=== PATIENT | female | born 1995 | race Caucasian/White ===

== ENCOUNTER → 2017-01-25 | Outpatient (CLI) | payer OTHER ==
--- NOTE | 2017-01-26 08:37 | US ---
EXAMINATION TYPE: US pelvic complete DATE OF EXAM: 01/25/2017 COMPARISON: NONE CLINICAL HISTORY: 21-year-old female N92.1 Breakthrough bleeding w/ IUD; Z97.5 IUD PLACEMENT. Pelvic pain, IUD placement 2014 TECHNIQUE: Transabdominal (TA) Date of LMP: 01/09/17 FINDINGS: Uterus: Anteverted measuring 8.9 x 4.5 x 6.1 cm. A small cervical nabothian cyst is noted. Endometrial Stripe: 0.7 cm. Trace fluid within the fundal uterine cavity. The IUD appears appropriate ly situated along the uterine cavity. Right Ovary: 2.6 x 1.6 x 1.7 cm with follicular change. Left Ovary: 3.1 x 2.7 x 1.9 cm with a 1.6 cm round heterogeneous lesion that could represent a hemor rhagic cyst or corpus luteum. Prominent vascularity and bilateral adnexa could be physiologic change. No pelvic free fluid. IMPRESSION: 1. The IUD appears appropriately positioned. There is a small amount of fluid along the fundal uterin e cavity. 2. A 1.6 cm hemorrhagic follicle/corpus luteum within the left ovary. 3. Prominent bilateral adnexal vascularity could be physiologic change.
== END | disposition home or self-care (01) ==
LOC: RADUSWWP 16:19
PROVIDERS: ATTEND Obstetrics & Gynecology
DX: N83.8 Other noninflammatory disorders of ovary, fallopian tube and broad ligament (principal); N92.1 Excessive and frequent menstruation with irregular cycle; Z97.5 Presence of (intrauterine) contraceptive device
CPT/HCPCS: 76856

== ENCOUNTER 2017-03-02 17:24 | Emergency (ER) | payer OTHER ==
[2017-03-02 17:33] VITALS: BP 109/64; PULSE 88; RESP 18; TEMP 98.1
[2017-03-02] MEDS ORDERED: ACETAMINOPHEN TAB 500 MG TAB PO STA (18:12)
--- NOTE | 2017-03-02 18:15 | ED ---
General Adult HPI - General Chief complaint: Upper Respiratory Infection Stated complaint: FLU LIKE SYMPTOMS Time Seen by Provider: 03/02/17 18:09 Source: patient, RN notes reviewed Mode of arrival: ambulatory Limitations: no limitations - History of Present Illness Initial comments: 21-year-old female presents emergency Department chief complaint cough cold like symptoms. Patient states that she has had a fever since about Saturday this week she's had a cough and runny nose burning in the throat. Patient states also sick at home. Patient states she is tried Advil and Motrin with no improvement to her symptoms. Patient was concerned she just does not feel like she is getting better so she thought that she should be evaluated. Patient denies any recent shortness of breath, chest pain, back pain, abdominal pain, nausea vomiting, numbness or tingling, dysuria or hematuria, constipation or diarrhea, headaches or visual changes, or any other current symptoms. - Related Data Home Medications Medication Instructions Recorded Confirmed lamoTRIgine [LaMICtal] 200 mg PO DAILY 02/07/16 05/15/16 Escitalopram [Lexapro] 10 mg PO DAILY 05/15/16 05/15/16 Previous Rx's Medication Instructions Recorded Ibuprofen [Motrin] 600 mg PO Q6HR PRN #20 tab 05/15/16 Orphenadrine [Norflex] 100 mg PO Q12H PRN #12 tablet.er 05/15/16 predniSONE 50 mg PO DAILY #5 tab 03/02/17 Allergies Allergy/AdvReac Type Severity Reaction Status Date / Time nifedipine [From Procardia] Allergy Swelling Verified 03/02/17 17:32 Review of Systems ROS Statement: Those systems with pertinent positive or pertinent negative responses have been documented in the HPI. ROS Other: All systems not noted in ROS Statement are negative. Past Medical History Past Medical History: No Reported History Additional Past Medical History / Comment(s): IBS, crohns disease, migraines History of Any Multi-Drug Resistant Organisms: MRSA Date of last positivie culture/infection: 2007 knee and axilla MDRO Source:: knee and axilla Past Surgical History: Adenoidectomy, Tonsillectomy Past Anesthesia/Blood Transfusion Reactions: No Reported Reaction Past Psychological History: Anxiety Smoking Status: Current every day smoker Past Alcohol Use History: None Reported Past Drug Use History: None Reported - Past Family History Mother Family Medical History: No Reported History Additional Family Medical History / Comment(s): on mom's side, gradmother has heart disease General Exam - General Exam Comments Initial Comments: General exam: Alert, active, comfortable in no apparent distress Head: Normocephalic Eyes: Normal reaction of pupils, equal size, normal range of extraocular motion Ears: normal external ear canals, pink tympanic membranes with normal cone of light Nose: clear with pink turbinates Throat: no erythema or exudates with normal sized tonsils Neck: no masses, no nuchal rigidity Chest: no chest wall deformity Lungs: equal air entry with no crackles or wheeze CVS: S1 and S2 normal with no audible mumurs, regular rhythm Abdomen: no hepatosplenomegaly, normal bowel sounds, no guarding or rigidity Spine: no scoliosis or deformity Skin: no rashes Neurological: No focal deficits, tone is normal in all 4 extremities Limitations: no limitations Course Vital Signs 03/02/17 17:28 Temperature 98.1 F Pulse Rate 88 Respiratory 18 Rate Blood Pressure 109/64 O2 Sat by Pulse 100 Oximetry Medical Decision Making - Medical Decision Making 21-year-old female presents to the emergency department with a chief complaint of upper extremity like symptoms. At this time patient's testing is negative. Discussed mostly the viral syndrome. We discussed Motrin Tylenol for her on steroids help with the dry cough. Discussed return members in all patient's questions. She stated she understood and she is given plan. All questions have been answered. She will be discharged. - Lab Data Lab Results 03/02/17 Range/Units 18:24 Group A Strep Rapid Negative (Negative) - Radiology Data Radiology results: report reviewed, image reviewed Disposition Clinical Impression: Upper respiratory infection Disposition: HOME SELF-CARE Condition: Stable Instructions: Upper Respiratory Infection (ED) Additional Instructions: Please use medication as discussed. Please follow up with family doctor if symptoms have not improved over the next two days. Please return to the emergency room if your symptoms increase or worsen or for any other concerns. Prescriptions: predniSONE 50 mg PO DAILY #5 tab Referrals: Reilly Joshi DO [Primary Care Provider] - 1-2 days Time of Disposition: 18:46
--- NOTE | 2017-03-02 18:40 | XR ---
EXAMINATION TYPE: XR chest 2V DATE OF EXAM: 03/02/2017 COMPARISON: 08/29/2015 HISTORY: Fever chills and cough TECHNIQUE: Frontal and lateral views of the chest are obtained. FINDINGS: There is no focal air space opacity, pleural effusion, or pneumothorax seen. The cardiac silhouette size is within normal limits. The osseous structures are intact. Scoliotic curvature of the thoracolumbar spine, S-shaped is again noted similar to the prior. IMPRESSION: No acute cardiopulmonary process.
== END 2017-03-02 19:00 | disposition home or self-care (01) ==
LOC: EC 17:24
DX: J06.9 Acute upper respiratory infection, unspecified (principal); F41.9 Anxiety disorder, unspecified; F17.200 Nicotine dependence, unspecified, uncomplicated; Z86.14 Personal history of Methicillin resistant Staphylococcus aureus infection; Z79.899 Other long term (current) drug therapy; Z88.8 Allergy status to other drugs, medicaments and biological substances
CPT/HCPCS: 71020; 87081; 87430; 99283

== ENCOUNTER → 2017-05-06 | Outpatient (CLI) | payer OTHER ==
--- NOTE | 2017-05-06 12:34 | MR ---
EXAMINATION TYPE: MR angio head wo con DATE OF EXAM: 05/06/2017 COMPARISON: MR brain same date HISTORY: Headache syndrome TECHNIQUE: Time of flight images focusing on the [place] were performed without contrast. FINDINGS: There is no evident aneurysm. Internal carotid arteries, vertebrobasilar system are patent. A1 segment of the internal carotid artery on the right is atrophic. Left vertebral artery is domina nt. No vascular malformation. No filling defect to suggest embolus. Suspect streaming artifact within the internal carotid arteries. IMPRESSION: No significant abnormality evident to account for patient's symptoms.
--- NOTE | 2017-05-06 12:43 | MR ---
EXAMINATION TYPE: MR brain wo/w con DATE OF EXAM: 05/06/2017 COMPARISON: MR angiogram same date, CT brain 06/03/2016 HISTORY: Headache syndrome TECHNIQUE: Multiplanar, multisequence images of the brain and brainstem is performed without and with IV contras t, utilizing 4.5 mL intravenous Gadavist . FINDINGS: Diffusion weighted images demonstrate no evidence of a recent infarct or other diffusion ab normality. Artifact present due to patient's dental hardware. There is no extra-axial fluid collecti on or significant white matter signal abnormality, punctate focus of hyperintensity in the left front al white matter on inversion recovery and T2-weighted sequences is noted. The ventricular system and cisternal spaces are normal in size and appearance. The brain volume is age appropriate. Midline structures demonstrate normal morphology, incidental pineal gland cyst noted. The craniocerv ical junction appears within normal limits. Post contrast images demonstrate no abnormal enhancement . The dural venous sinuses appear patent. The visualized sinuses are clear and the globes are intact. IMPRESSION: Exam somewhat limited. No abnormality evident to account for patient's symptoms. Nonspeci fic white matter demyelination as described.
== END | disposition home or self-care (01) ==
LOC: RADMRIMAIN 09:34
PROVIDERS: ATTEND Family Medicine
DX: R90.82 White matter disease, unspecified (principal); G44.89 Other headache syndrome
CPT/HCPCS: 70553; 70544; A9581

== ENCOUNTER 2017-09-18 17:20 | Emergency (ER) | payer OTHER ==
[2017-09-18 17:38] VITALS: RESP 18
[2017-09-18] MEDS ORDERED: KETOROLAC 30 MG/ML 1 ML VIAL IVP STA (17:49)
[2017-09-18] MEDS ORDERED: SODIUM CHLORIDE 0.9% 1,000 ML IV ONE (17:49)
--- NOTE | 2017-09-18 17:53 | ED ---
General Adult HPI - General Chief complaint: Abdominal Pain Stated complaint: Gallbladder issues Time Seen by Provider: 09/18/17 17:39 Source: patient Mode of arrival: ambulatory Limitations: no limitations - History of Present Illness Initial comments: This is a 22-year-old female with a history of IBS who presents emergency department for right upper quadrant abdominal soreness, generalized fatigue, chills, and mucousy stools. She states that the symptoms started approximately one week ago and have gradually worsened. She states that she called her primary doctor who was concerned for possible gallbladder pathology so they sent her to the emergency department. Patient states that the pain is not worse with eating. She states that she does not really have a pain and just it just feels sore. She denies any nausea or vomiting. She states that she does have chronic diarrhea because of her IBS. She had a bowel movement earlier today and had a little bit of blood and mucus in it. It was more formed than normal. Also admits to a mild right-sided headache. She states that she did hit her head a few days ago and feels that the headache is likely from this. She denies any focal neurologic symptoms. No double vision. No difficult speech or swallowing. No other acute complaints. - Related Data Home Medications Medication Instructions Recorded Confirmed Etonogestrel/Ethinyl Estradiol 1 ring VG Q21D 09/18/17 09/18/17 [Nuvaring Vaginal Ring] Vitamin C/Biotin [Hair, Skin and 1 tab PO DAILY 09/18/17 09/18/17 Nails] Previous Rx's Medication Instructions Recorded Ciprofloxacin HCl [Cipro] 500 mg PO BID 3 Days #14 tab 09/18/17 Dicyclomine [Bentyl] 10 mg PO QID PRN #20 capsule 09/18/17 Allergies Allergy/AdvReac Type Severity Reaction Status Date / Time nifedipine [From Procardia] Allergy Swelling Verified 09/18/17 18:00 Review of Systems ROS Statement: Those systems with pertinent positive or pertinent negative responses have been documented in the HPI. ROS Other: All systems not noted in ROS Statement are negative. Past Medical History Past Medical History: No Reported History Additional Past Medical History / Comment(s): IBS, crohns disease, migraines History of Any Multi-Drug Resistant Organisms: MRSA Date of last positivie culture/infection: 2007 knee and axilla MDRO Source:: knee and axilla Past Surgical History: Adenoidectomy, Tonsillectomy Past Anesthesia/Blood Transfusion Reactions: No Reported Reaction Past Psychological History: Anxiety Smoking Status: Current every day smoker Past Alcohol Use History: None Reported Past Drug Use History: None Reported - Past Family History Mother Family Medical History: No Reported History Additional Family Medical History / Comment(s): on mom's side, gradmother has heart disease General Exam - General Exam Comments Initial Comments: Constitutional: Awake alert Appears comfortable Head: Normocephalic atraumatic Eyes: no conjunctival injection No scleral icterus EOMI Neck: No JVD Supple Heart: Regular rate rhythm normal S1-S2 no murmurs Lungs: Clear to auscultation bilaterally No wheezing No rales Abdomen: Soft nondistended no tenderness palpation in the right upper quadrant or the rest of the abdomen Extremities: Non edematous DP pulses intact Radial pulses intact Neuro: A&Ox3 No focal neurologic deficits Psych: Appropriate mood and affect Limitations: no limitations Course Vital Signs 09/18/17 17:35 Temperature 97.9 F Pulse Rate 88 Respiratory 18 Rate Blood Pressure 135/70 O2 Sat by Pulse 98 Oximetry Medical Decision Making - Medical Decision Making Is a 22-year-old female who presents emergency department for generalized fatigue, chills, and abdominal discomfort with mucousy stools. The patient was evaluated blood work and was completely unremarkable. She had no tenderness to palpation the right upper quadrant. She did complain of some soreness there however. UA was evaluated and appears contaminated. The patient has no urinary complaints. She has been dealing with these symptoms for the last week and now she is having bloody and mucousy stools. I'm concerned for colitis. We 'll start her on ciprofloxacin twice a day. Also give her some Bentyl. She is close follow-up with her primary doctor. If she has worsening or changing symptoms she can return the emergency department. All questions were answered. - Lab Data Result diagrams: 09/18/17 18:04 09/18/17 18:04 Lab Results 09/18/17 09/18/17 09/18/17 Range/Units 18:04 18:04 18:04 WBC 4.0 (3.8-10.6) k/uL RBC 4.67 (3.80-5.40) m/uL Hgb 12.9 (11.4-16.0) gm/dL Hct 38.2 (34.0-46.0) % MCV 81.9 (80.0-100.0) fL MCH 27.7 (25.0-35.0) pg MCHC 33.8 (31.0-37.0) g/dL RDW 13.0 (11.5-15.5) % Plt Count 319 (150-450) k/uL Neutrophils % 44 % Lymphocytes % 42 % Monocytes % 9 % Eosinophils % 2 % Basophils % 0 % Neutrophils # 1.8 (1.3-7.7) k/uL Lymphocytes # 1.7 (1.0-4.8) k/uL Monocytes # 0.4 (0-1.0) k/uL Eosinophils # 0.1 (0-0.7) k/uL Basophils # 0.0 (0-0.2) k/uL Sodium 145 (137-145) mmol/L Potassium 3.7 (3.5-5.1) mmol/L Chloride 105 (98-107) mmol/L Carbon Dioxide 27 (22-30) mmol/L Anion Gap 13 mmol/L BUN 13 (7-17) mg/dL Creatinine 0.60 (0.52-1.04) mg/dL Est GFR (CKD-EPI)AfAm >90 (>60 ml/min/1.73 sqM) Est GFR (CKD-EPI)NonAf >90 (>60 ml/min/1.73 sqM) Glucose 81 (74-99) mg/dL Calcium 9.4 (8.4-10.2) mg/dL Total Bilirubin 0.3 (0.2-1.3) mg/dL AST 17 (14-36) U/L ALT 24 (9-52) U/L Alkaline Phosphatase 59 (38-126) U/L Total Protein 7.1 (6.3-8.2) g/dL Albumin 4.0 (3.5-5.0) g/dL Lipase 270 (23-300) U/L Urine Color Urine Appearance (Clear) Urine pH (5.0-8.0) Ur Specific [place] (1.001-1.035) Urine Protein (Negative) Urine Glucose (UA) (Negative) Urine Ketones (Negative) Urine Blood (Negative) Urine Nitrite (Negative) Urine Bilirubin (Negative) Urine Urobilinogen (<2.0) mg/dL Ur Leukocyte Esterase (Negative) Urine RBC (0-5) /hpf Urine WBC (0-5) /hpf Ur Squamous Epith Cells (0-4) /hpf Urine Mucus (None) /hpf Urine HCG, Qual Not Detected (Not Detectd) Influenza Type A RNA (Not Detectd) Influenza Type B (PCR) (Not Detectd) 09/18/17 09/18/17 Range/Units 18:04 18:04 WBC (3.8-10.6) k/uL RBC (3.80-5.40) m/uL Hgb (11.4-16.0) gm/dL Hct (34.0-46.0) % MCV (80.0-100.0) fL MCH (25.0-35.0) pg MCHC (31.0-37.0) g/dL RDW (11.5-15.5) % Plt Count (150-450) k/uL Neutrophils % % Lymphocytes % % Monocytes % % Eosinophils % % Basophils % % Neutrophils # (1.3-7.7) k/uL Lymphocytes # (1.0-4.8) k/uL Monocytes # (0-1.0) k/uL Eosinophils # (0-0.7) k/uL Basophils # (0-0.2) k/uL Sodium (137-145) mmol/L Potassium (3.5-5.1) mmol/L Chloride (98-107) mmol/L Carbon Dioxide (22-30) mmol/L Anion Gap mmol/L BUN (7-17) mg/dL Creatinine (0.52-1.04) mg/dL Est GFR (CKD-EPI)AfAm (>60 ml/min/1.73 sqM) Est GFR (CKD-EPI)NonAf (>60 ml/min/1.73 sqM) Glucose (74-99) mg/dL Calcium (8.4-10.2) mg/dL Total Bilirubin (0.2-1.3) mg/dL AST (14-36) U/L ALT (9-52) U/L Alkaline Phosphatase (38-126) U/L Total Protein (6.3-8.2) g/dL Albumin (3.5-5.0) g/dL Lipase (23-300) U/L Urine Color Yellow Urine Appearance Cloudy H (Clear) Urine pH 6.0 (5.0-8.0) Ur Specific [place] 1.025 (1.001-1.035) Urine Protein Trace H (Negative) Urine Glucose (UA) Negative (Negative) Urine Ketones Negative (Negative) Urine Blood Negative (Negative) Urine Nitrite Negative (Negative) Urine Bilirubin Negative (Negative) Urine Urobilinogen 2.0 (<2.0) mg/dL Ur Leukocyte Esterase Moderate H (Negative) Urine RBC 1 (0-5) /hpf Urine WBC 27 H (0-5) /hpf Ur Squamous Epith Cells 22 H (0-4) /hpf Urine Mucus Few H (None) /hpf Urine HCG, Qual (Not Detectd) Influenza Type A RNA Not Detected (Not Detectd) Influenza Type B (PCR) Not Detected (Not Detectd) Disposition Clinical Impression: Colitis Disposition: HOME SELF-CARE Condition: Stable Instructions: Colitis (ED) Prescriptions: Ciprofloxacin HCl [Cipro] 500 mg PO BID 3 Days #14 tab Dicyclomine [Bentyl] 10 mg PO QID PRN #20 capsule PRN Reason: Abdominal Cramping Referrals: None,Stated [Primary Care Provider] - 1-2 days
[2017-09-18 18:22] LABS: ALT 24 U/L (9-52); AST 17 U/L (14-36); Alkaline Phosphatase 59 U/L (38-126); Anion Gap 13 mmol/L; Basophils % (A) 0 %; Blood Urea Nitrogen 13 mg/dL (7-17); Calcium 9.4 mg/dL (8.4-10.2); Carbon Dioxide 27 mmol/L (22-30); Chloride 105 mmol/L (98-107); Eosinophils # (A) 0.1 k/uL (0-0.7); Eosinophils % (A) 2 %; Glucose 81 mg/dL (74-99); HCT 38.2 % (34.0-46.0); HGB 12.9 gm/dL (11.4-16.0); Lipase 270 U/L (23-300); Lymphocytes # (A) 1.7 k/uL (1.0-4.8); Lymphocytes % (A) 42 %; MCH 27.7 pg (25.0-35.0); MCHC 33.8 g/dL (31.0-37.0); MCV 81.9 fL (80.0-100.0); Mean Platelet Volume 7.6; Monocytes # (A) 0.4 k/uL (0-1.0); Monocytes % (A) 9 %; Neutrophils # (A) 1.8 k/uL (1.3-7.7); Neutrophils % (A) 44 %; Platelet Count 319 k/uL (150-450); Potassium 3.7 mmol/L (3.5-5.1); RBC 4.67 m/uL (3.80-5.40); Sodium 145 mmol/L (137-145); Total Bilirubin 0.3 mg/dL (0.2-1.3); Total Protein 7.1 g/dL (6.3-8.2)
[2017-09-18 18:35] LABS: Appearance,Urine Cloudy (Clear); Bilirubin,Urine Negative (Negative); Blood,Urine Negative (Negative); Color,Urine Yellow; Glucose,Urine (UA) Negative (Negative); Ketones,Urine Negative (Negative); Leukocyte Esterase,Urine Moderate (Negative); Mucus,Urine Few /hpf; Nitrite,Urine Negative (Negative); Protein,Urine Trace (Negative); RBC,Urine 1 /hpf (0-5); Specific Gravity,Urine 1.025 (1.001-1.035); Squamous Epithelial Cell,Urine 22 /hpf (0-4); WBC,Urine 27 /hpf (0-5)
[2017-09-18 19:19] VITALS: BP 108/56; PULSE 54; TEMP 99
== END 2017-09-18 19:19 | disposition home or self-care (01) ==
LOC: EC 17:20
DX: K52.9 Noninfective gastroenteritis and colitis, unspecified (principal); F17.200 Nicotine dependence, unspecified, uncomplicated; Z86.14 Personal history of Methicillin resistant Staphylococcus aureus infection; Z79.3 Long term (current) use of hormonal contraceptives; Z88.8 Allergy status to other drugs, medicaments and biological substances
CPT/HCPCS: 36415; 80053; 83690; 85025; 81001; 81025; 87086; 87502; 99284; 96374; 96361; J1885

== ENCOUNTER 2018-10-25 17:48 | Emergency (ER) | payer OTHER ==
[2018-10-25 18:00] VITALS: BP 112/74; PULSE 79; RESP 18; TEMP 98.7
[2018-10-25] MEDS ORDERED: ACET/COD 300 MG/30 MG STARTER PACK 6 TAB BTL PO STA (18:09)
[2018-10-25] MEDS ORDERED: PENICILLIN VK 500MG STARTER 4 TAB BTL PO STA (18:09)
--- NOTE | 2018-10-25 18:12 | ED ---
ENT HPI - General Chief complaint: Dental/Oral Stated complaint: dental pain Time Seen by Provider: 10/25/18 17:50 Source: patient Mode of arrival: ambulatory Limitations: no limitations - History of Present Illness Initial comments: 23-year-old female presenting today for chief complaint of right lower dental pain. Patient states she has had a "bad tooth" and had a recent cleaning by her dentist. She states that yesterday she noticed pain in the right lower tooth. She states pain has been increasing today. Patient is concerned infection and presents emergency department for evaluation. Patient denies swelling below tongue or below the angle of the mandible she denies any difficulty breathing or swallowing she denies fever chills or night sweats. Remaining review of systems negative upon arrival patient appears well - Related Data Home Medications Medication Instructions Recorded Confirmed Etonogestrel/Ethinyl Estradiol 1 ring VG Q21D 09/18/17 10/25/18 [Nuvaring Vaginal Ring] Multivitamins, Thera [Multivitamin 1 tab PO DAILY 10/25/18 10/25/18 (formulary)] Previous Rx's Medication Instructions Recorded Acetaminophen with Codeine 1 tab PO Q6H PRN 3 Days #12 tab 10/25/18 [Tylenol w/codeine #3] Penicillin V Potassium [Pen Vee K] 500 mg PO QID 7 Days #28 tablet 10/25/18 Allergies Allergy/AdvReac Type Severity Reaction Status Date / Time nifedipine [From Procardia] Allergy Swelling Verified 10/25/18 18:20 Review of Systems ROS Statement: Those systems with pertinent positive or pertinent negative responses have been documented in the HPI. ROS Other: All systems not noted in ROS Statement are negative. Past Medical History Past Medical History: No Reported History Additional Past Medical History / Comment(s): IBS, crohns disease, migraines History of Any Multi-Drug Resistant Organisms: MRSA Date of last positivie culture/infection: 2007 knee and axilla MDRO Source:: knee and axilla Past Surgical History: Adenoidectomy, Tonsillectomy Past Anesthesia/Blood Transfusion Reactions: No Reported Reaction Past Psychological History: Anxiety Smoking Status: Former smoker Past Alcohol Use History: Occasional Past Drug Use History: None Reported - Past Family History Mother Family Medical History: No Reported History Additional Family Medical History / Comment(s): on mom's side, gradmother has heart disease General Exam - General Exam Comments Initial Comments: General: The patient is awake and alert, in no distress, and does not appear acutely ill. Eye: Pupils are equal, round and reactive to light, extra-ocular movements are intact. No nystagmus. There is normal conjunctiva bilaterally. No signs of icterus. Ears, nose, mouth and throat: There are moist mucous membranes and no oral lesions. Tooth #30 appears carious, there is pain to percussion no palpable abscess. No swelling below the tongue or below the angle of the mandible. No stridor try putting or drooling. Neck: The neck is supple, there is no tenderness or JVD. Cardiovascular: There is a regular rate and rhythm. No murmur, rub or gallop is appreciated. Respiratory: Lungs are clear to auscultation, respirations are non-labored, breath sounds are equal. No wheezes, stridor, rales, or rhonchi. Musculoskeletal: Normal ROM, no tenderness. Strength 5/5. Sensation intact. Radia pulses equal bilaterally 2+. Neurological: A&O x 3. CN II-XII intact, There are no obvious motor or sensory deficits. Coordination appears grossly intact. Speech is normal. Skin: Skin is warm and dry and no rashes or lesions are noted. Psychiatric: Cooperative, appropriate mood & affect, normal judgment. Limitations: no limitations Course Vital Signs 10/25/18 17:57 Temperature 98.7 F Pulse Rate 79 Respiratory 18 Rate Blood Pressure 112/74 O2 Sat by Pulse 100 Oximetry Medical Decision Making - Medical Decision Making 23-year-old female presented for right-sided dental pain. Patient has dental caries on examination. There is pain to percussion of tooth #30 concerning for possible developing periapical abscess. No sign of ludwigs angina. No palpable fluctuant abscess. Patient was started on penicillin VK and given Tylenol No. 3 for pain management I discussed the risks involved with use of Tylenol No. 3 advised patient not to work operate machinery or take medication for severe pain. Patient verbalized understanding of risks. Return parameters were discussed at length the patient who verbalized understanding. She was discharged appearing well Disposition Clinical Impression: Pain, dental Disposition: HOME SELF-CARE Condition: Good Instructions (If sedation given, give patient instructions): Dental Abscess (ED), Dental Caries (ED) Additional Instructions: Please use medication as discussed. Please follow-up with dentist on Saturday. Please return to emergency room if the symptoms increase or worsen or for any other concerns as discussed. Prescriptions: Penicillin V Potassium [Pen Vee K] 500 mg PO QID 7 Days #28 tablet Acetaminophen with Codeine [Tylenol w/codeine #3] 1 tab PO Q6H PRN 3 Days #12 tab PRN Reason: Severe Pain Is patient prescribed a controlled substance at d/c from ED?: Yes When asked, does pt state using other controlled substances?: No If prescribed controlled substance>3 days was MAPS reviewed?: Prescribed <3 Days If opioid is for acute pain is fill amount 7 days or less?: Yes If Rx opioid, was Start Talking consent form obtained?: Yes Referrals: None,Stated [Primary Care Provider] - 1-2 days Storm Manuel DDS [STAFF PHYSICIAN] - 1-2 days Time of Disposition: 18:11
== END 2018-10-25 18:25 | disposition home or self-care (01) ==
LOC: EC 17:48
DX: K08.89 Other specified disorders of teeth and supporting structures (principal); Z88.8 Allergy status to other drugs, medicaments and biological substances; Z87.891 Personal history of nicotine dependence
CPT/HCPCS: 99282

== ENCOUNTER 2018-11-03 12:03 | Emergency (ER) | payer OTHER ==
[2018-11-03] MEDS ORDERED: SODIUM CHLORIDE 0.9% 1,000 ML IV ONE (13:21)
[2018-11-03] MEDS ORDERED: KETOROLAC 30 MG/ML 1 ML VIAL IVP STA (13:21)
--- NOTE | 2018-11-03 13:24 | ED ---
General Adult HPI - General Chief complaint: Headache Stated complaint: headache, numb ears Time Seen by Provider: 11/03/18 12:56 Source: patient Mode of arrival: ambulatory Limitations: no limitations - History of Present Illness Initial comments: Patient is a 23-year-old female who presents with a chief complaint of a headache. This is been going on for about a month. Patient states it is waxing and waning in nature, she states it is in the base of her skull with some radiation down the neck and up towards the top of her head. She states that she also has a history of anxiety and panic attacks. She states her headache is worse when she is feeling anxious. She states a gradual onset, it is aching in nature, waxing and waning. She states that she has a family history of a brain aneurysm in her mother, though she followed up with her primary care doctor after this and says one had an MRI of the brain which was normal. - Related Data Home Medications Medication Instructions Recorded Confirmed Etonogestrel/Ethinyl Estradiol 1 ring VG Q21D 09/18/17 11/03/18 [Nuvaring Vaginal Ring] Multivitamins, Thera [Multivitamin 1 tab PO DAILY 10/25/18 11/03/18 (formulary)] Allergies Allergy/AdvReac Type Severity Reaction Status Date / Time nifedipine [From Procardia] Allergy Swelling Verified 11/03/18 12:33 Review of Systems ROS Statement: Those systems with pertinent positive or pertinent negative responses have been documented in the HPI. ROS Other: All systems not noted in ROS Statement are negative. Neurological: Reports: headache Past Medical History Past Medical History: No Reported History Additional Past Medical History / Comment(s): IBS, crohns disease, migraines, borderline personality disorder. History of Any Multi-Drug Resistant Organisms: MRSA Date of last positivie culture/infection: 2007 knee and axilla MDRO Source:: knee and axilla Past Surgical History: Adenoidectomy, Tonsillectomy Past Anesthesia/Blood Transfusion Reactions: No Reported Reaction Past Psychological History: Anxiety Smoking Status: Current some day smoker Past Alcohol Use History: Occasional Past Drug Use History: None Reported - Past Family History Mother Family Medical History: No Reported History Additional Family Medical History / Comment(s): on mom's side, gradmother has heart disease General Exam Limitations: no limitations General appearance: alert, in no apparent distress Head exam: Present: atraumatic, normocephalic Eye exam: Present: normal appearance, PERRL, EOMI Pupils: Present: normal accommodation. Absent: irregular, unequal ENT exam: Present: normal exam, normal oropharynx Neck exam: Present: normal inspection Respiratory exam: Present: normal lung sounds bilaterally. Absent: respiratory distress, wheezes Cardiovascular Exam: Present: regular rate, normal rhythm GI/Abdominal exam: Present: soft. Absent: distended, tenderness Rectal exam: Present: deferred Extremities exam: Present: normal inspection Back exam: Present: normal inspection Neurological exam: Present: alert, oriented X3 Psychiatric exam: Present: normal affect, normal mood Skin exam: Present: warm, dry, intact Course Vital Signs 11/03/18 11/03/18 12:19 14:00 Temperature 98.8 F Pulse Rate 64 62 Respiratory 18 16 Rate Blood Pressure 113/71 103/66 O2 Sat by Pulse 100 99 Oximetry Medical Decision Making - Medical Decision Making Patient presents with a chief complaint of a headache. On initial evaluation, vitals are stable, patient is in no acute distress. History of the headache is non-concerning for acute life-threatening causes of headache. Fluid retention headache at this time. Patient had an MRI of the brain recently which was normal did not show any aneurysm. She'll be evaluated with basic lead including urinalysis and test today. She was given a liter of IV fluid, and Toradol. Patient is neurologically intact, emulating well without assistance, negative Romberg, motor and sensation is intact. 3:52 PM Evaluation of this patient is unremarkable, hCG is negative, urinalysis shows no evidence of infection. Review of patient's records show that the MRI was in 2017, did not show any evidence of aneurysm at that time. Reexamination, patient states she is feeling better after the Toradol. She is stable for discharge. Patient struck and follow up with primary care in 1-2 days, return to the ED if symptoms worsen or change. - Lab Data Result diagrams: 11/03/18 14:00 11/03/18 14:00 Lab Results 11/03/18 11/03/18 11/03/18 Range/Units 13:45 14:00 14:00 WBC (3.8-10.6) k/uL RBC (3.80-5.40) m/uL Hgb (11.4-16.0) gm/dL Hct (34.0-46.0) % MCV (80.0-100.0) fL MCH (25.0-35.0) pg MCHC (31.0-37.0) g/dL RDW (11.5-15.5) % Plt Count (150-450) k/uL Neutrophils % % Lymphocytes % % Monocytes % % Eosinophils % % Basophils % % Neutrophils # (1.3-7.7) k/uL Lymphocytes # (1.0-4.8) k/uL Monocytes # (0-1.0) k/uL Eosinophils # (0-0.7) k/uL Basophils # (0-0.2) k/uL Potassium 4.0 (3.5-5.1) mmol/L Chloride 107 (98-107) mmol/L Carbon Dioxide 26 (22-30) mmol/L Anion Gap 7 mmol/L BUN 17 (7-17) mg/dL Creatinine 0.53 (0.52-1.04) mg/dL Est GFR (CKD-EPI)AfAm >90 (>60 ml/min/1.73 sqM) Est GFR (CKD-EPI)NonAf >90 (>60 ml/min/1.73 sqM) Glucose 76 (74-99) mg/dL Calcium 9.2 (8.4-10.2) mg/dL HCG, Qual Not Detected Urine Color Yellow Urine Appearance Clear (Clear) Urine pH 7.0 (5.0-8.0) Ur Specific [place] 1.020 (1.001-1.035) Urine Protein Negative (Negative) Urine Glucose (UA) Negative (Negative) Urine Ketones Negative (Negative) Urine Blood Negative (Negative) Urine Nitrite Negative (Negative) Urine Bilirubin Negative (Negative) Urine Urobilinogen <2.0 (<2.0) mg/dL Ur Leukocyte Esterase Small H (Negative) Urine RBC 1 (0-5) /hpf Urine WBC 3 (0-5) /hpf Ur Squamous Epith Cells <1 (0-4) /hpf Urine Mucus Rare H (None) /hpf 11/03/18 Range/Units 14:00 WBC 3.5 L (3.8-10.6) k/uL RBC 4.59 (3.80-5.40) m/uL Hgb 12.0 (11.4-16.0) gm/dL Hct 36.3 (34.0-46.0) % MCV 79.2 L (80.0-100.0) fL MCH 26.1 (25.0-35.0) pg MCHC 32.9 (31.0-37.0) g/dL RDW 13.8 (11.5-15.5) % Plt Count 256 (150-450) k/uL Neutrophils % 50 % Lymphocytes % 38 % Monocytes % 8 % Eosinophils % 2 % Basophils % 0 % Neutrophils # 1.7 (1.3-7.7) k/uL Lymphocytes # 1.3 (1.0-4.8) k/uL Monocytes # 0.3 (0-1.0) k/uL Eosinophils # 0.1 (0-0.7) k/uL Basophils # 0.0 (0-0.2) k/uL Potassium (3.5-5.1) mmol/L Chloride (98-107) mmol/L Carbon Dioxide (22-30) mmol/L Anion Gap mmol/L BUN (7-17) mg/dL Creatinine (0.52-1.04) mg/dL Est GFR (CKD-EPI)AfAm (>60 ml/min/1.73 sqM) Est GFR (CKD-EPI)NonAf (>60 ml/min/1.73 sqM) Glucose (74-99) mg/dL Calcium (8.4-10.2) mg/dL HCG, Qual Urine Color Urine Appearance (Clear) Urine pH (5.0-8.0) Ur Specific [place] (1.001-1.035) Urine Protein (Negative) Urine Glucose (UA) (Negative) Urine Ketones (Negative) Urine Blood (Negative) Urine Nitrite (Negative) Urine Bilirubin (Negative) Urine Urobilinogen (<2.0) mg/dL Ur Leukocyte Esterase (Negative) Urine RBC (0-5) /hpf Urine WBC (0-5) /hpf Ur Squamous Epith Cells (0-4) /hpf Urine Mucus (None) /hpf Disposition Clinical Impression: Tension headache Disposition: HOME SELF-CARE Condition: Good Instructions (If sedation given, give patient instructions): Acute Headache (ED) Is patient prescribed a controlled substance at d/c from ED?: No Referrals: None,Stated [Primary Care Provider] - 1-2 days Herminia Johnson MD [STAFF PHYSICIAN] - 1-2 days
[2018-11-03 14:21] LABS: Appearance,Urine Clear (Clear); Bilirubin,Urine Negative (Negative); Blood,Urine Negative (Negative); Color,Urine Yellow; Glucose,Urine (UA) Negative (Negative); Ketones,Urine Negative (Negative); Leukocyte Esterase,Urine Small (Negative); Mucus,Urine Rare /hpf; Nitrite,Urine Negative (Negative); Protein,Urine Negative (Negative); RBC,Urine 1 /hpf (0-5); Squamous Epithelial Cell,Urine <1 /hpf (0-4); Urobilinogen,Urine <2.0 mg/dL (<2.0); WBC,Urine 3 /hpf (0-5)
[2018-11-03 14:33] LABS: Basophils % (A) 0 %; Eosinophils # (A) 0.1 k/uL (0-0.7); Eosinophils % (A) 2 %; HCT 36.3 % (34.0-46.0); Lymphocytes # (A) 1.3 k/uL (1.0-4.8); Lymphocytes % (A) 38 %; MCH 26.1 pg (25.0-35.0); MCHC 32.9 g/dL (31.0-37.0); MCV 79.2 fL (80.0-100.0); Mean Platelet Volume 7.5; Monocytes # (A) 0.3 k/uL (0-1.0); Monocytes % (A) 8 %; Neutrophils # (A) 1.7 k/uL (1.3-7.7); Neutrophils % (A) 50 %; Platelet Count 256 k/uL (150-450); RBC 4.59 m/uL (3.80-5.40); RDW 13.8 % (11.5-15.5); WBC 3.5 k/uL (3.8-10.6)
[2018-11-03 14:43] LABS: Chloride 107 mmol/L (98-107)
[2018-11-03 14:44] LABS: Anion Gap 7 mmol/L; Blood Urea Nitrogen 17 mg/dL (7-17); Calcium 9.2 mg/dL (8.4-10.2); Carbon Dioxide 26 mmol/L (22-30); Glucose 76 mg/dL (74-99)
[2018-11-03 14:48] VITALS: RESP 16
[2018-11-03 15:49] LABS: Sodium 139 mmol/L (137-145)
[2018-11-03 16:06] VITALS: BP 116/67; PULSE 66; TEMP 98
== END 2018-11-03 16:07 | disposition home or self-care (01) ==
LOC: EC 12:03
DX: G44.209 Tension-type headache, unspecified, not intractable (principal); F17.200 Nicotine dependence, unspecified, uncomplicated; Z88.8 Allergy status to other drugs, medicaments and biological substances; Z97.5 Presence of (intrauterine) contraceptive device; Z86.14 Personal history of Methicillin resistant Staphylococcus aureus infection; Z86.69 Personal history of other diseases of the nervous system and sense organs; Z82.0 Family history of epilepsy and other diseases of the nervous system
CPT/HCPCS: 36415; 80048; 85025; 81001; 84703; 99283; 96374; 96361 ×2; J1885

== ENCOUNTER 2020-04-13 14:48 | Emergency (ER) | payer OTHER ==
[2020-04-13 14:54] VITALS: RESP 18; TEMP 98.4
[2020-04-13] MEDS ORDERED: SODIUM CHLORIDE 0.9% 1,000 ML IV STA ×2 (15:45)
[2020-04-13 16:04] LABS: Basophils % (A) 1 %; Eosinophils # (A) 0.1 k/uL (0-0.7); Eosinophils % (A) 2 %; HCT 39.5 % (34.0-46.0); HGB 12.6 gm/dL (11.4-16.0); Lymphocytes # (A) 1.1 k/uL (1.0-4.8); Lymphocytes % (A) 38 %; MCH 25.2 pg (25.0-35.0); MCV 78.6 fL (80.0-100.0); Mean Platelet Volume 7.5; Monocytes # (A) 0.2 k/uL (0-1.0); Monocytes % (A) 7 %; Neutrophils # (A) 1.5 k/uL (1.3-7.7); Neutrophils % (A) 50 %; Platelet Count 268 k/uL (150-450); RBC 5.02 m/uL (3.80-5.40); RDW 14.2 % (11.5-15.5)
[2020-04-13 16:05] LABS: Appearance,Urine Cloudy (Clear); Bilirubin,Urine Negative (Negative); Blood,Urine Negative (Negative); Color,Urine Yellow; Glucose,Urine (UA) Negative (Negative); Ketones,Urine Negative (Negative); Leukocyte Esterase,Urine Moderate (Negative); Mucus,Urine Occasional /hpf; Nitrite,Urine Negative (Negative); PH, Urine 7.5 (5.0-8.0); Protein,Urine Negative (Negative); RBC,Urine 1 /hpf (0-5); Specific Gravity,Urine 1.018 (1.001-1.035); Squamous Epithelial Cell,Urine 10 /hpf (0-4); Urobilinogen,Urine <2.0 mg/dL (<2.0); WBC,Urine 4 /hpf (0-5)
[2020-04-13 16:13] LABS: ALT 12 U/L (4-34); AST 20 U/L (14-36); African American GFR (CKD) >90 (>60 ml/min/1.73 sqM); Albumin 4.4 g/dL (3.5-5.0); Alkaline Phosphatase 73 U/L (38-126); Amylase 64 U/L (30-110); Anion Gap 7 mmol/L; Blood Urea Nitrogen 14 mg/dL (7-17); Calcium 9.5 mg/dL (8.4-10.2); Carbon Dioxide 28 mmol/L (22-30); Chloride 102 mmol/L (98-107); Glucose 115 mg/dL (74-99); Lipase 111 U/L (23-300); Non-African American GFR(CKD) >90 (>60 ml/min/1.73 sqM); Potassium 4.1 mmol/L (3.5-5.1); Sodium 137 mmol/L (137-145); Total Bilirubin 0.5 mg/dL (0.2-1.3); Total Protein 7.5 g/dL (6.3-8.2)
[2020-04-13] MEDS ORDERED: KETOROLAC 15 MG/ML 1 ML VIAL IVP STA (16:19)
[2020-04-13] MEDS ORDERED: ONDANSETRON 4 MG/2 ML VIAL IVP STA (16:19)
[2020-04-13] MEDS ORDERED: PANTOPRAZOLE 40 MG/10 ML VIAL IVP STA (16:19)
--- NOTE | 2020-04-13 17:22 | ED ---
Abdominal Pain HPI - General Chief Complaint: Abdominal Pain Stated Complaint: ABD pain Time Seen by Provider: 04/13/20 15:32 Source: patient, RN notes reviewed, old records reviewed Mode of arrival: ambulatory Limitations: no limitations - History of Present Illness Initial Comments: Patient is a 24-year-old female presents to the ER today for evaluation for 3 days of nausea and complains of episodes of mid epigastric abdominal pain leading towards her back today. She reports that she laid down in her pain seems somewhat subsided. - Related Data Home Medications Medication Instructions Recorded Confirmed Etonogestrel/Ethinyl Estradiol 1 ring VG Q21D 09/18/17 11/03/18 [Nuvaring Vaginal Ring] Multivitamins, Thera [Multivitamin 1 tab PO DAILY 10/25/18 11/03/18 (formulary)] Previous Rx's Medication Instructions Recorded Ondansetron Odt [Zofran Odt] 4 mg PO Q8HR PRN #12 tab 04/13/20 Pantoprazole [Protonix] 40 mg PO DAILY #30 tablet. 04/13/20 Allergies Allergy/AdvReac Type Severity Reaction Status Date / Time nifedipine [From Procardia] Allergy Swelling Verified 04/13/20 14:54 Review of Systems ROS Statement: Those systems with pertinent positive or pertinent negative responses have been documented in the HPI. ROS Other: All systems not noted in ROS Statement are negative. Past Medical History Past Medical History: No Reported History Additional Past Medical History / Comment(s): IBS, crohns disease, migraines, borderline personality disorder. History of Any Multi-Drug Resistant Organisms: MRSA Date of last positivie culture/infection: 2007 knee and axilla MDRO Source:: knee and axilla Past Surgical History: Adenoidectomy, Tonsillectomy Past Anesthesia/Blood Transfusion Reactions: No Reported Reaction Past Psychological History: Anxiety Smoking Status: Never smoker Past Alcohol Use History: Occasional Past Drug Use History: None Reported - Past Family History Mother Family Medical History: No Reported History Additional Family Medical History / Comment(s): on mom's side, gradmother has heart disease General Exam - General Exam Comments Initial Comments: 24 year old female, no distress. Limitations: no limitations General appearance: alert, in no apparent distress Head exam: Present: atraumatic, normocephalic, normal inspection Eye exam: Present: normal appearance, PERRL, EOMI. Absent: scleral icterus, conjunctival injection, periorbital swelling ENT exam: Present: normal exam, mucous membranes moist Neck exam: Present: normal inspection. Absent: tenderness, meningismus, lymphadenopathy Respiratory exam: Present: normal lung sounds bilaterally. Absent: respiratory distress, wheezes, rales, rhonchi, stridor Cardiovascular Exam: Present: regular rate, normal rhythm, normal heart sounds. Absent: systolic murmur, diastolic murmur, rubs, gallop, clicks GI/Abdominal exam: Present: soft, normal bowel sounds. Absent: distended, tenderness, guarding, rebound, rigid Extremities exam: Present: normal inspection, full ROM, normal capillary refill. Absent: tenderness, pedal edema, joint swelling, calf tenderness Back exam: Present: normal inspection Neurological exam: Present: alert, oriented X3, CN II-XII intact Psychiatric exam: Present: normal affect, normal mood Skin exam: Present: warm, dry, intact, normal color. Absent: rash Course Vital Signs 04/13/20 04/13/20 04/13/20 14:50 15:54 16:00 Temperature 98.4 F Pulse Rate 85 79 75 Respiratory 18 18 18 Rate Blood Pressure 106/72 110/65 101/72 O2 Sat by Pulse 98 99 99 Oximetry 04/13/20 04/13/20 17:00 18:00 Temperature 98.4 F Pulse Rate 78 75 Respiratory 18 18 Rate Blood Pressure 110/63 O2 Sat by Pulse 99 99 Oximetry Medical Decision Making - Medical Decision Making Patient's 44-year-old female presents emergency room today for nausea and vomiting, in epigastric area. Patient was given IV fluids and nausea medicine labwork obtained. Labs were reviewed and unremarkable. Patient is reevaluated and her pain is improved. Patient was advised patient's symptoms likely be gastritis or GERD. Discussed the Patient on antacid medication. Discussed that she can follow-up with her primary Drs. Hare GI doctor. Patient is agreeable to plan will comply. - Lab Data Result diagrams: 04/13/20 15:56 04/13/20 15:56 Lab Results 04/13/20 04/13/20 04/13/20 Range/Units 15:56 15:56 15:56 WBC 3.0 L (3.8-10.6) k/uL RBC 5.02 (3.80-5.40) m/uL Hgb 12.6 (11.4-16.0) gm/dL Hct 39.5 (34.0-46.0) % MCV 78.6 L (80.0-100.0) fL MCH 25.2 (25.0-35.0) pg MCHC 32.0 (31.0-37.0) g/dL RDW 14.2 (11.5-15.5) % Plt Count 268 (150-450) k/uL Neutrophils % 50 % Lymphocytes % 38 % Monocytes % 7 % Eosinophils % 2 % Basophils % 1 % Neutrophils # 1.5 (1.3-7.7) k/uL Lymphocytes # 1.1 (1.0-4.8) k/uL Monocytes # 0.2 (0-1.0) k/uL Eosinophils # 0.1 (0-0.7) k/uL Basophils # 0.0 (0-0.2) k/uL Sodium (137-145) mmol/L Potassium (3.5-5.1) mmol/L Chloride (98-107) mmol/L Carbon Dioxide (22-30) mmol/L Anion Gap mmol/L BUN (7-17) mg/dL Creatinine (0.52-1.04) mg/dL Est GFR (CKD-EPI)AfAm (>60 ml/min/1.73 sqM) Est GFR (CKD-EPI)NonAf (>60 ml/min/1.73 sqM) Glucose (74-99) mg/dL Calcium (8.4-10.2) mg/dL Total Bilirubin (0.2-1.3) mg/dL AST (14-36) U/L ALT (4-34) U/L Alkaline Phosphatase (38-126) U/L Total Protein (6.3-8.2) g/dL Albumin (3.5-5.0) g/dL Amylase (30-110) U/L Lipase (23-300) U/L Urine Color Yellow Urine Appearance Cloudy H (Clear) Urine pH 7.5 (5.0-8.0) Ur Specific [place] 1.018 (1.001-1.035) Urine Protein Negative (Negative) Urine Glucose (UA) Negative (Negative) Urine Ketones Negative (Negative) Urine Blood Negative (Negative) Urine Nitrite Negative (Negative) Urine Bilirubin Negative (Negative) Urine Urobilinogen <2.0 (<2.0) mg/dL Ur Leukocyte Esterase Moderate H (Negative) Urine RBC 1 (0-5) /hpf Urine WBC 4 (0-5) /hpf Ur Squamous Epith Cells 10 H (0-4) /hpf Urine Mucus Occasional H (None) /hpf Urine HCG, Qual Not Detected (Not Detectd) 04/13/20 Range/Units 15:56 WBC (3.8-10.6) k/uL RBC (3.80-5.40) m/uL Hgb (11.4-16.0) gm/dL Hct (34.0-46.0) % MCV (80.0-100.0) fL MCH (25.0-35.0) pg MCHC (31.0-37.0) g/dL RDW (11.5-15.5) % Plt Count (150-450) k/uL Neutrophils % % Lymphocytes % % Monocytes % % Eosinophils % % Basophils % % Neutrophils # (1.3-7.7) k/uL Lymphocytes # (1.0-4.8) k/uL Monocytes # (0-1.0) k/uL Eosinophils # (0-0.7) k/uL Basophils # (0-0.2) k/uL Sodium 137 (137-145) mmol/L Potassium 4.1 (3.5-5.1) mmol/L Chloride 102 (98-107) mmol/L Carbon Dioxide 28 (22-30) mmol/L Anion Gap 7 mmol/L BUN 14 (7-17) mg/dL Creatinine 0.58 (0.52-1.04) mg/dL Est GFR (CKD-EPI)AfAm >90 (>60 ml/min/1.73 sqM) Est GFR (CKD-EPI)NonAf >90 (>60 ml/min/1.73 sqM) Glucose 115 H (74-99) mg/dL Calcium 9.5 (8.4-10.2) mg/dL Total Bilirubin 0.5 (0.2-1.3) mg/dL AST 20 (14-36) U/L ALT 12 (4-34) U/L Alkaline Phosphatase 73 (38-126) U/L Total Protein 7.5 (6.3-8.2) g/dL Albumin 4.4 (3.5-5.0) g/dL Amylase 64 (30-110) U/L Lipase 111 (23-300) U/L Urine Color Urine Appearance (Clear) Urine pH (5.0-8.0) Ur Specific [place] (1.001-1.035) Urine Protein (Negative) Urine Glucose (UA) (Negative) Urine Ketones (Negative) Urine Blood (Negative) Urine Nitrite (Negative) Urine Bilirubin (Negative) Urine Urobilinogen (<2.0) mg/dL Ur Leukocyte Esterase (Negative) Urine RBC (0-5) /hpf Urine WBC (0-5) /hpf Ur Squamous Epith Cells (0-4) /hpf Urine Mucus (None) /hpf Urine HCG, Qual (Not Detectd) Disposition Clinical Impression: Abdominal pain, Gastritis Disposition: HOME SELF-CARE Condition: Good Instructions (If sedation given, give patient instructions): Abdominal Pain (ED) Additional Instructions: Patient has a take the medications as prescribed. Following up with primary care physician. Return to emergency department if any alarming signs or symptoms occur. Prescriptions: Pantoprazole [Protonix] 40 mg PO DAILY #30 tablet. Ondansetron Odt [Zofran Odt] 4 mg PO Q8HR PRN #12 tab PRN Reason: Nausea Is patient prescribed a controlled substance at d/c from ED?: No Referrals: Shadi Fierro DO [Primary Care Provider] - 1-2 days Time of Disposition: 17:20
[2020-04-13 18:07] VITALS: BP 110/63; PULSE 75
== END 2020-04-13 18:00 | disposition home or self-care (01) ==
LOC: EC 14:48
DX: K29.70 Gastritis, unspecified, without bleeding (principal); Z79.3 Long term (current) use of hormonal contraceptives; Z88.8 Allergy status to other drugs, medicaments and biological substances; Z87.19 Personal history of other diseases of the digestive system; Z86.14 Personal history of Methicillin resistant Staphylococcus aureus infection
CPT/HCPCS: 36415; 80053; 82150; 83690; 85025; 81001; 81025; 99284; 96374; 96375 ×2; 96361 ×2; J2405; J1885; C9113

== ENCOUNTER → 2020-08-18 | Outpatient (CLI) | payer OTHER ==
[2020-08-19 10:01] LABS: T4, Free (Free Thyroxine) 1.1 ng/dL (0.80-1.80)
[2020-08-19 14:45] LABS: Estradiol 40.9 pg/mL; Follicle Stimulating Hormone 7.4 mIU/mL; Luteinizing Hormone 5.7 mIU/mL; Progesterone 0.5 ng/mL; Prolactin 7.1 ng/mL (2.8-29.2)
== END | disposition home or self-care (01) ==
LOC: LABWHC1 13:57
PROVIDERS: ATTEND Obstetrics & Gynecology
DX: N93.8 Other specified abnormal uterine and vaginal bleeding (principal)
CPT/HCPCS: 36415; 82670; 83001; 83002; 84144; 84146; 84439; 84443; 84479

== ENCOUNTER 2020-09-05 08:39 | Day surgery (SDC) | payer OTHER ==
[2020-08-31 14:07] VITALS: BMI 21.5
[~2020-09-05 08:39] MED LIST: LACTATED RINGERS 1,000 ML IV SCH
[2020-09-05 09:10] VITALS: TEMP 98.3
[2020-09-05] MEDS ORDERED: LACTATED RINGERS 1,000 ML IV ONE (09:40)
[2020-09-05] MEDS ORDERED: PROPOFOL 10 MG/ML 20 ML VIAL IV ONE (09:41)
[2020-09-05] MEDS ORDERED: LIDOCAINE 1% INJ 10MG/ML (20 ML MDV) ONE (09:41)
--- NOTE | 2020-09-05 10:18 | P.PCN ---
Date of Procedure: 09/05/20 Description of Procedure: BRIEF HISTORY: Patient is a 25-year-old female presenting for outpatient esophagogastroduodenoscopy for evaluation of epigastric pain. She reports pain radiating to her back described as severe occurring in waves. She is known history of GERD and is currently on Protonix. PROCEDURE PERFORMED: Esophagogastroduodenoscopy with biopsy . PREOPERATIVE DIAGNOSIS: Epigastric abdominal pain, GERD. ESTIMATED BLOOD LOSS: Minimal. IV sedation per anesthesia. PROCEDURE: After informed consent was obtained, the patient was brought into the endoscopy unit. IV sedation was administered by Anesthesia under continuous monitoring. Initially the Olympus GIF-190 video endoscope was inserted into the mouth. Esophagus intubated without any difficulty. It was gradually advanced into the stomach and duodenum and carefully examined. The bulb and the second part of the duodenum appeared normal, With biopsies taken to rule out celiac sprue. The scope at this time was withdrawn to the stomach, adequately insufflated with air, and upon careful examination, mucosa of the antrum, body, cardia and the fundus appeared normal Except for some mild patchy erythema in the antrum and body suggestive of mild gastritis. Biopsies taken . The scope was then withdrawn into the esophagus. The GE junction was located at 36 cm from the incisors and biopsied. The esophagus appeared normal. There were no erosions or ulcerations seen and the patient tolerated the procedure well. IMPRESSION: 1. Mild gastritis. 2. Biopsies of the duodenum, antrum body and GE junction. RECOMMENDATIONS: The findings of this examination were discussed with the patient and her family. Okay to resume diet. Okay to resume medications. Await pathology from biopsies. Follow up in the GI clinic as scheduled. Continue current medical management.
[2020-09-05 10:23] VITALS: PULSE 77; RESP 17
[2020-09-05 10:24] VITALS: BP 102/73
== END 2020-09-05 10:55 | disposition home or self-care (01) ==
LOC: ORWHC2ENDO 08:39
PROVIDERS: ATTEND Internal Medicine
DX: K21.00 Gastro-esophageal reflux disease with esophagitis, without bleeding (principal); K29.70 Gastritis, unspecified, without bleeding; K58.9 Irritable bowel syndrome, unspecified; Z72.0 Tobacco use; Z88.8 Allergy status to other drugs, medicaments and biological substances; Z79.899 Other long term (current) drug therapy; Z90.89 Acquired absence of other organs; Z98.890 Other specified postprocedural states
CPT/HCPCS: 81025; 88305; 43239; J2001; J2704

== ENCOUNTER 2021-08-29 01:27 | Emergency (ER) | payer OTHER ==
[2021-08-29 01:38] VITALS: TEMP 97.8
--- NOTE | 2021-08-29 02:17 | XR ---
EXAMINATION TYPE: XR chest 2V DATE OF EXAM: 08/29/2021 COMPARISON: 03/02/2017 HISTORY: Chest pain TECHNIQUE: 2 views FINDINGS: Heart and mediastinum are normal. Lungs are clear. Diaphragm is normal. Bony thorax appears intact. There is mild thoracolumbar levoscoliosis.. IMPRESSION: Normal chest. No change.
--- NOTE | 2021-08-29 06:08 | ED ---
Chest Pain HPI - General Chief Complaint: Chest Pain Stated Complaint: chest pain Time Seen by Provider: 08/29/21 06:05 Source: patient, RN notes reviewed, old records reviewed Mode of arrival: ambulatory Limitations: no limitations - History of Present Illness Initial Comments: This is a 26-year-old female to the emergency department today. Patient pr esents today for evaluation of chest pain and right-sided chest pain chest pain that began after going to a concert on Saturday. Pain has persisted throughout the last 2 days worsening inspiration. No shortness of breath, no abdominal pain, no nausea vomiting or diarrhea no headaches. Again no fevers cough or congestion of travel history or sick contacts otherwise. No history of prior chest pain no trauma MD Complaint: chest pain -: days(s) Onset: during rest Pain Location: right chest Pain Radiation: none Severity: mild Severity scale (1-10): 2 Quality: tightness, sharp Consistency: intermittent Improves With: nothing Worsens With: inspiration Context: other (Recently at concert) Anginal Symptoms: other (none) Other Symptoms: other (none) Treatments Prior to Arrival: none - Related Data Home Medications Medication Instructions Recorded Confirmed Multivitamins, Thera [Multivitamin 1 tab PO HS 10/25/18 08/31/20 (formulary)] Dicyclomine HCl 20 mg PO TID 08/11/20 08/31/20 Ferrous Sulfate [Iron] 325 mg PO HS 08/11/20 08/31/20 Previous Rx's Medication Instructions Recorded Ondansetron Odt [Zofran Odt] 4 mg PO Q8HR PRN #12 tab 04/13/20 Pantoprazole [Protonix] 40 mg PO DAILY #30 tablet. 04/13/20 Allergies Allergy/AdvReac Type Severity Reaction Status Date / Time nifedipine [From Procardia] Allergy Swelling Verified 08/31/20 13:59 Review of Systems ROS Statement: Those systems with pertinent positive or pertinent negative responses have been documented in the HPI. ROS Other: All systems not noted in ROS Statement are negative. EKG Findings - EKG Comments: EKG Findings:: EKG shows sinus rhythm 82 [address] 140 QRS 81 QTC 396 Past Medical History Past Medical History: No Reported History Additional Past Medical History / Comment(s): abdominal pain, IBS, past hx migraines, History of Any Multi-Drug Resistant Organisms: MRSA Date of last positivie culture/infection: 2007 knee and axilla MDRO Source:: knee and axilla Past Surgical History: Adenoidectomy, Tonsillectomy Additional Past Surgical History / Comment(s): colonoscopy Past Anesthesia/Blood Transfusion Reactions: No Reported Reaction Past Psychological History: Anxiety Smoking Status: Former smoker Past Alcohol Use History: None Reported Past Drug Use History: None Reported - Past Family History Mother Family Medical History: No Reported History Additional Family Medical History / Comment(s): on mom's side, gradmother has heart disease General Exam General appearance: alert, in no apparent distress, anxious Head exam: Present: atraumatic, normocephalic, normal inspection Eye exam: Present: normal appearance, PERRL, EOMI. Absent: scleral icterus, conjunctival injection, periorbital swelling ENT exam: Present: normal exam, mucous membranes moist Neck exam: Present: normal inspection. Absent: tenderness, meningismus, lymphadenopathy Respiratory exam: Present: normal lung sounds bilaterally. Absent: respiratory distress, wheezes, rales, rhonchi, stridor Cardiovascular Exam: Present: regular rate, normal rhythm, normal heart sounds. Absent: systolic murmur, diastolic murmur, rubs, gallop, clicks GI/Abdominal exam: Present: soft, tenderness (Right upper quadrant), normal bowel sounds. Absent: distended, guarding, rebound, rigid Extremities exam: Present: normal inspection, full ROM, normal capillary refill. Absent: tenderness, pedal edema, joint swelling, calf tenderness Back exam: Present: normal inspection Neurological exam: Present: alert, oriented X3, CN II-XII intact Psychiatric exam: Present: normal affect, normal mood Skin exam: Present: warm, dry, intact, normal color. Absent: rash Course Vital Signs 08/29/21 08/29/21 01:34 02:38 Temperature 97.8 F Pulse Rate 101 H Respiratory 20 20 Rate Blood Pressure 111/64 O2 Sat by Pulse 98 Oximetry - Reevaluation(s) Reevaluation #1: 08/29/21 06:05 Attic record is reviewed Reevaluation #2: 08/29/21 06:05 Patient's chest pain resolved here in the ER she is excited for discharge home to follow-up with primary care Reevaluation #3: 08/29/21 06:20 Further speaking with patient and patient's abdominal pain does appear to be right upper quadrant biliary her biliary colic type pain. Patient is unable to stay in the hospital anymore at this time she has to go get her son. Patient given a follow-up ultrasound and lab values regarding biliary colic Chest Pain MDM - MDM 26 female to the emergency department for evaluation of chest pain right-sided chest pain atypical, patient here with no shortness of breath no fevers no cough or congestion. EKG and chest x-ray negative. Patient does have to see her son this morning and can no longer wait. Lab values W and an ultrasound will be done on an outpatient basis, she can be discharged home Disposition Clinical Impression: Chest pain, Atypical chest pain, Biliary colic Disposition: HOME SELF-CARE Condition: Good Instructions (If sedation given, give patient instructions): Chest Pain (ED), Biliary Colic (ED) Is patient prescribed a controlled substance at d/c from ED?: No Referrals: Master Hobson MD [Primary Care Provider] - 1-2 days
[2021-08-29 06:25] VITALS: BP 117/85; PULSE 74; RESP 19
== END 2021-08-29 06:21 | disposition home or self-care (01) ==
LOC: EC 01:27
DX: R07.89 Other chest pain (principal); K80.50 Calculus of bile duct without cholangitis or cholecystitis without obstruction; F41.9 Anxiety disorder, unspecified; Z87.891 Personal history of nicotine dependence
CPT/HCPCS: 71046; 93005; 99285

== ENCOUNTER → 2022-05-21 | Outpatient (CLI) | payer OTHER ==
--- NOTE | 2022-05-21 19:26 | US ---
EXAMINATION TYPE: Transabdominal DATE OF EXAM: 05/21/2022 4:34 PM COMPARISON: NONE CLINICAL HISTORY: Z36.89 CONFIRM GESTATIONAL AGE AND VIABILITY. Confirm Dates, pt has no complaints a t this time EXAM PERFORMED: Transabdominal (TA) EXAM MEASUREMENTS: GESTATIONAL AGE / DATING Physician Established: (10 weeks/3 days) EDC: 12/14/2022 Dates by LMP: LMP unknown Dates by First Scan: No previous this is first scan Dates by Current Scan for: (10 weeks/6 days) EDC: 12/11/2022 MATERNAL ANATOMY Uterus: 10.7 x 7.5 x 9.7 cm Right Ovary: 2.5 x 2.4 x 1.8 cm Left Ovary: 2.8 x 2.3 x 2.3 cm Post CDS / Adnexa: wnl Presence of free fluid: No Presence of corpus luteal cyst: Left Ovary= 1.8 x 1.5 x 1.9 cm Presence of subchorionic bleed: No GESTATION / SURVEY CRL: 4.0 cm (10 weeks/6 days) MSD: wnl Heart Rate: 165 bpm Rhythm: Normal IUP: Viable IUP Single, viable IUP- No abnormality visualized at this time IMPRESSION: Single viable intrauterine gestation with estimated gestational age of 10 weeks 6 days with estimated due date of 12/11/2022.
== END | disposition home or self-care (01) ==
LOC: RADUSWWP 16:21
PROVIDERS: ATTEND Obstetrics & Gynecology
DX: Z36.89 Encounter for other specified antenatal screening (principal); Z3A.10 10 weeks gestation of pregnancy
CPT/HCPCS: 76801

== ENCOUNTER 2022-10-16 22:42 | Emergency (ER) | payer OTHER ==
[2022-10-16] MEDS ORDERED: SODIUM CHLORIDE 0.9% 1,000 ML IV STA (23:37)
--- NOTE | 2022-10-17 00:01 | ED ---
General Adult HPI - General Chief complaint: Dizziness Stated complaint: Light Headed, Dizziness, Rapid Heart Rate, 32 wks Time Seen by Provider: 10/16/22 23:23 Source: patient Mode of arrival: ambulatory Limitations: no limitations - History of Present Illness Initial comments: Patient is a 27-year-old female currently 32 weeks presenting with chief complaint of palpitations and dizziness. Patient has history of iron deficiency anemia, she was recently seen by hematology and is aware that she will need an iron transfusion. She states that since entering the third trimester she has had worsening episodes of dizziness, elevated heart rate, and shortness of breath. She is having no abdominal pain or vaginal bleeding at this time. She is a A2. Dr. Moser is her CERTIFIED MIDWIFE. She denies any chest pain. No fevers or chills. No cough, congestion, sore throat. No lower extremity swelling. - Related Data Home Medications Medication Instructions Recorded Confirmed Multivitamins, Thera [Multivitamin 1 tab PO HS 10/25/18 08/31/20 (formulary)] Dicyclomine HCl 20 mg PO TID 08/11/20 08/31/20 Ferrous Sulfate [Iron] 325 mg PO HS 08/11/20 08/31/20 Previous Rx's Medication Instructions Recorded Ondansetron Odt [Zofran Odt] 4 mg PO Q8HR PRN #12 tab 04/13/20 Pantoprazole [Protonix] 40 mg PO DAILY #30 tablet. 04/13/20 Allergies Allergy/AdvReac Type Severity Reaction Status Date / Time nifedipine [From Procardia] Allergy Swelling Verified 08/31/20 13:59 Review of Systems ROS Statement: Those systems with pertinent positive or pertinent negative responses have been documented in the HPI. ROS Other: All systems not noted in ROS Statement are negative. Past Medical History Past Medical History: No Reported History Additional Past Medical History / Comment(s): abdominal pain, IBS, past hx migraines, anemia History of Any Multi-Drug Resistant Organisms: MRSA Date of last positivie culture/infection: 2007 knee and axilla MDRO Source:: knee and axilla Past Surgical History: Adenoidectomy, Tonsillectomy Additional Past Surgical History / Comment(s): colonoscopy Past Anesthesia/Blood Transfusion Reactions: No Reported Reaction Past Psychological History: Anxiety Smoking Status: Former smoker Past Alcohol Use History: None Reported Past Drug Use History: None Reported - Past Family History Mother Family Medical History: No Reported History Additional Family Medical History / Comment(s): on mom's side, gradmother has heart disease General Exam Limitations: no limitations General appearance: alert, in no apparent distress Head exam: Present: atraumatic, normocephalic, normal inspection Eye exam: Present: normal appearance, EOMI. Absent: scleral icterus, periorbital swelling Neck exam: Present: normal inspection, full ROM Respiratory exam: Present: normal lung sounds bilaterally. Absent: respiratory distress, wheezes, rales, rhonchi, stridor Cardiovascular Exam: Present: regular rate, normal rhythm, normal heart sounds. Absent: systolic murmur, diastolic murmur, rubs, gallop, clicks Extremities exam: Absent: pedal edema Neurological exam: Present: alert, oriented X3, CN II-XII intact Psychiatric exam: Present: normal affect, normal mood Skin exam: Present: warm, dry, intact, normal color. Absent: rash Course Vital Signs 10/16/22 10/17/22 10/17/22 22:58 00:00 00:09 Temperature 98.0 F 98.3 F Pulse Rate 94 90 Pulse Rate [ 89 Data Science And Iot Manager ] Respiratory 16 18 Rate Blood Pressure 127/80 120/74 O2 Sat by Pulse 98 99 Oximetry 10/17/22 02:48 Temperature 97.9 F Pulse Rate 72 Pulse Rate [ Data Science And Iot Manager ] Respiratory 16 Rate Blood Pressure 114/74 O2 Sat by Pulse 99 Oximetry EKG Findings - EKG Comments: EKG Findings:: Sinus rhythm ventricular rate 92. PA interval 137. QRS 84. QT 347. QTC 397. T-wave inversion in lead 3 otherwise no acute changes Medical Decision Making - Medical Decision Making Was pt. sent in by a medical professional or institution (, PA, RF DESIGN ENGINEER, urgent care, hospital, or detention...) When possible be specific @ -No Did you speak to anyone other than the patient for history (EMS, parent, family, police, friend...)? What history was obtained from this source @ -No Did you review nursing and triage notes (agree or disagree)? Why? @ -I reviewed and agree with nursing and triage notes Were old charts reviewed (outside hosp., previous admission, EMS record, old EKG, old radiological studies, urgent care reports/EKG's, detention records)? Report findings @ -No old charts were reviewed Differential Diagnosis (chest pain, altered mental status, abdominal pain women, abdominal pain men, vaginal bleeding, weakness, fever, dyspnea, syncope, headache, dizziness, GI bleed, back pain, seizure, CVA, palpatations, mental health, musculoskeletal)? @ -MDM Differential Dyspnea: Coronary syndrome, arrhythmia, tamponade, asthma, COPD, pulmonary embolism, pneumonia, pneumothorax, pulmonary effusion, anaphylaxis, diabetic ketoacidosis, flailed chest, pulmonary contusion, diaphragmatic rupture, anemia, neuromuscular this is not meant to be an all-inclusive list. EKG interpreted by me (3pts min.). @ -As above X-rays interpreted by me (1pt min.). @ -Chest x-ray shows no acute process. CT interpreted by me (1pt min.). @ -None done U/S interpreted by me (1pt. min.). @ -None done What testing was considered but not performed or refused? (CT, X-rays, U/S, labs)? Why? @ -None What meds were considered but not given or refused? Why? @ -None Did you discuss the management of the patient with other professionals (professionals i.e. , PA, RF DESIGN ENGINEER, lab, RT, psych nurse, mental health social worker, optimization consultant, teacher, chief fundraising officer, piano case and bench assembler)? Give summary @ -No Was smoking cessation discussed for >3mins.? @ -No Was critical care preformed (if so, how long)? @ -No Were there social determinants of health that impacted care today? How? (Homelessness, low income, unemployed, alcoholism, drug addiction, transportation, low edu. Level, literacy, decrease access to med. care, residential, rehab)? @ -No Was there de-escalation of care discussed even if they declined (Discuss DNR or withdrawal of care, Hospice)? DNR status @ -No What co-morbidities impacted this encounter? (DM, HTN, Smoking, COPD, CAD, Cancer, CVA, ARF, Chemo, Hep., AIDS, mental health diagnosis, sleep apnea, morbid obesity)? @ - Was patient admitted / discharged? Hospital course, mention meds given and route, prescriptions, significant lab abnormalities, going to OR and other pertinent info. @ -Patient is a 27-year-old female currently 32 weeks A2 presenting with chief complaint of shortness of breath, elevated heart rate, dizziness. Patient states that she has been having these episodes more frequ ently since entering her third trimester. She has known history of iron deficiency anemia, she recently met with hematology and states that she is currently being scheduled for an iron transfusion. At this time she is having no chest pain, abdominal pain, vaginal bleeding. On physical examination heart and lungs are clear to auscultation and no lower extremity edema. Hemoglobin 8.1, which patient states is consistent with her baseline. Troponin is negative, EKG shows no acute changes. Chest x-rays negative. NST is WNL per L&D nurse. Patient is educated on today's findings. She is instructed to follow-up with her PCP and boilermaker industrial boilers. Follow-up with CERTIFIED MIDWIFE. Follow-up with PCP. Report back to ER with any new or worsening symptoms. Discussed return parameters and answered all questions. Patient conveyed verbal understanding and agreed to the plan. I discussed this case in detail with my attending Dr. De Santiago Undiagnosed new problem with uncertain prognosis? @ -No Drug Therapy requiring intensive monitoring for toxicity (Heparin, Nitro, Insulin, Cardizem)? @ -No Were any procedures done? @ -No Diagnosis/symptom? @ -Anemia Acute, or Chronic, or Acute on Chronic? @ -Acute on chronic Uncomplicated (without systemic symptoms) or Complicated (systemic symptoms)? @ -Uncomplicated Side effects of treatment? @ -No Exacerbation, Progression, or Severe Exacerbation? @ -No Poses a threat to life or bodily function? How? (Chest pain, USA, MA, pneumonia, PE, COPD, DKA, ARF, appy, cholecystitis, CVA, Diverticulitis, Homicidal, Suicidal, threat to staff... and all critical care pts) @ -No - Lab Data Result diagrams: 10/16/22 23:48 10/16/22 23:48 Lab Results 10/16/22 10/16/22 10/16/22 Range/Units 23:48 23:48 23:48 WBC 7.1 (3.8-10.6) k/uL RBC 3.53 L (3.80-5.40) m/uL Hgb 8.1 L (11.4-16.0) gm/dL Hct 24.6 L (34.0-46.0) % MCV 69.8 L (80.0-100.0) fL MCH 22.8 L (25.0-35.0) pg MCHC 32.7 (31.0-37.0) g/dL RDW 15.6 H (11.5-15.5) % Plt Count 298 (150-450) k/uL MPV 7.5 Neutrophils % 68 % Lymphocytes % 18 % Monocytes % 10 % Eosinophils % 1 % Basophils % 0 % Neutrophils # 4.8 (1.3-7.7) k/uL Lymphocytes # 1.3 (1.0-4.8) k/uL Monocytes # 0.7 (0-1.0) k/uL Eosinophils # 0.1 (0-0.7) k/uL Basophils # 0.0 (0-0.2) k/uL Manual Slide Review Performed Polychromasia Present Hypochromasia Slight Poikilocytosis Slight Microcytosis Moderate PT 9.5 (9.0-12.0) sec INR 0.9 (<1.2) Sodium (137-145) mmol/L Potassium (3.5-5.1) mmol/L Chloride (98-107) mmol/L Carbon Dioxide (22-30) mmol/L Anion Gap mmol/L BUN (7-17) mg/dL Creatinine (0.52-1.04) mg/dL Est GFR (CKD-EPI)AfAm (>60 ml/min/1.73 sqM) Est GFR (CKD-EPI)NonAf (>60 ml/min/1.73 sqM) Glucose (74-99) mg/dL Calcium (8.4-10.2) mg/dL Total Bilirubin (0.2-1.3) mg/dL AST (14-36) U/L ALT (4-34) U/L Alkaline Phosphatase (38-126) U/L Troponin I (0.000-0.034) ng/mL Total Protein (6.3-8.2) g/dL Albumin (3.5-5.0) g/dL Urine Color Colorless Urine Appearance Clear (Clear) Urine pH 6.0 (5.0-8.0) Ur Specific [place] 1.002 (1.001-1.035) Urine Protein Negative (Negative) Urine Glucose (UA) Negative (Negative) Urine Ketones Negative (Negative) Urine Blood Negative (Negative) Urine Nitrite Negative (Negative) Urine Bilirubin Negative (Negative) Urine Urobilinogen <2.0 (<2.0) mg/dL Ur Leukocyte Esterase Trace H (Negative) Urine RBC <1 (0-5) /hpf Urine WBC 1 (0-5) /hpf Ur Squamous Epith Cells 1 (0-4) /hpf 10/16/22 10/16/22 Range/Units 23:48 23:48 WBC (3.8-10.6) k/uL RBC (3.80-5.40) m/uL Hgb (11.4-16.0) gm/dL Hct (34.0-46.0) % MCV (80.0-100.0) fL MCH (25.0-35.0) pg MCHC (31.0-37.0) g/dL RDW (11.5-15.5) % Plt Count (150-450) k/uL MPV Neutrophils % % Lymphocytes % % Monocytes % % Eosinophils % % Basophils % % Neutrophils # (1.3-7.7) k/uL Lymphocytes # (1.0-4.8) k/uL Monocytes # (0-1.0) k/uL Eosinophils # (0-0.7) k/uL Basophils # (0-0.2) k/uL Manual Slide Review Polychromasia Hypochromasia Poikilocytosis Microcytosis PT (9.0-12.0) sec INR (<1.2) Sodium 135 L (137-145) mmol/L Potassium 3.5 (3.5-5.1) mmol/L Chloride 102 (98-107) mmol/L Carbon Dioxide 23 (22-30) mmol/L Anion Gap 10 mmol/L BUN 5 L (7-17) mg/dL Creatinine 0.29 L (0.52-1.04) mg/dL Est GFR (CKD-EPI)AfAm >90 (>60 ml/min/1.73 sqM) Est GFR (CKD-EPI)NonAf >90 (>60 ml/min/1.73 sqM) Glucose 108 H (74-99) mg/dL Calcium 9.0 (8.4-10.2) mg/dL Total Bilirubin 0.4 (0.2-1.3) mg/dL AST 19 (14-36) U/L ALT 16 (4-34) U/L Alkaline Phosphatase 163 H (38-126) U/L Troponin I <0.012 (0.000-0.034) ng/mL Total Protein 6.4 (6.3-8.2) g/dL Albumin 3.5 (3.5-5.0) g/dL Urine Color Urine Appearance (Clear) Urine pH (5.0-8.0) Ur Specific [place] (1.001-1.035) Urine Protein (Negative) Urine Glucose (UA) (Negative) Urine Ketones (Negative) Urine Blood (Negative) Urine Nitrite (Negative) Urine Bilirubin (Negative) Urine Urobilinogen (<2.0) mg/dL Ur Leukocyte Esterase (Negative) Urine RBC (0-5) /hpf Urine WBC (0-5) /hpf Ur Squamous Epith Cells (0-4) /hpf Disposition Clinical Impression: Anemia Disposition: HOME SELF-CARE Condition: Good Instructions (If sedation given, give patient instructions): Iron Rich Diet (ED), Dizziness (ED), Anemia (ED) Additional Instructions: Follow-up with PCP and CERTIFIED MIDWIFE. Report back to ER with any new or worsening symptoms. Is patient prescribed a controlled substance at d/c from ED?: No Referrals: Master Hobson MD [Primary Care Provider] - 1-2 days Steven Moser MD [STAFF PHYSICIAN] - 1-2 days Time of Disposition: 02:39
[2022-10-17 00:23] LABS: ALT 16 U/L (4-34); AST 19 U/L (14-36); African American GFR (CKD) >90 (>60 ml/min/1.73 sqM); Albumin 3.5 g/dL (3.5-5.0); Alkaline Phosphatase 163 U/L (38-126); Anion Gap 10 mmol/L; Blood Urea Nitrogen 5 mg/dL (7-17); Carbon Dioxide 23 mmol/L (22-30); Chloride 102 mmol/L (98-107); Glucose 108 mg/dL (74-99); INR 0.9 (<1.2); Non-African American GFR(CKD) >90 (>60 ml/min/1.73 sqM); Potassium 3.5 mmol/L (3.5-5.1); Prothrombin Time 9.5 sec (9.0-12.0); Sodium 135 mmol/L (137-145); Total Bilirubin 0.4 mg/dL (0.2-1.3); Total Protein 6.4 g/dL (6.3-8.2)
[2022-10-17 00:27] LABS: Appearance,Urine Clear (Clear); Bilirubin,Urine Negative (Negative); Blood,Urine Negative (Negative); Color,Urine Colorless; Glucose,Urine (UA) Negative (Negative); Ketones,Urine Negative (Negative); Leukocyte Esterase,Urine Trace (Negative); Nitrite,Urine Negative (Negative); Protein,Urine Negative (Negative); RBC,Urine <1 /hpf (0-5); Specific Gravity,Urine 1.002 (1.001-1.035); Squamous Epithelial Cell,Urine 1 /hpf (0-4); Urobilinogen,Urine <2.0 mg/dL (<2.0); WBC,Urine 1 /hpf (0-5)
--- NOTE | 2022-10-17 00:28 | XR ---
EXAM: XR Chest, 2 Views CLINICAL HISTORY: ITS.REASON XR Reason: SOB TECHNIQUE: Frontal and lateral views of the chest. COMPARISON: 08/29/21 FINDINGS: Lungs: Unremarkable. No consolidation. Pleural space: Unremarkable. No pneumothorax. Heart: Unremarkable. No cardiomegaly. Mediastinum: Unremarkable. Bones/joints: Unremarkable. IMPRESSION: Normal chest x-rays.
[2022-10-17 00:56] LABS: Basophils % (A) 0 %; Eosinophils # (A) 0.1 k/uL (0-0.7); Eosinophils % (A) 1 %; HCT 24.6 % (34.0-46.0); HGB 8.1 gm/dL (11.4-16.0); Hypochromasia Slight; Lymphocytes # (A) 1.3 k/uL (1.0-4.8); Lymphocytes % (A) 18 %; MCH 22.8 pg (25.0-35.0); MCHC 32.7 g/dL (31.0-37.0); MCV 69.8 fL (80.0-100.0); Mean Platelet Volume 7.5; Microcytosis Moderate; Monocytes # (A) 0.7 k/uL (0-1.0); Monocytes % (A) 10 %; Neutrophils # (A) 4.8 k/uL (1.3-7.7); Neutrophils % (A) 68 %; Platelet Count 298 k/uL (150-450); Poikilocytosis Slight; RBC 3.53 m/uL (3.80-5.40); RDW 15.6 % (11.5-15.5); WBC 7.1 k/uL (3.8-10.6)
[2022-10-17 01:25] LABS: Polychromasia Present
[2022-10-17 02:49] VITALS: BP 114/74; PULSE 72; RESP 16; TEMP 97.9
== END 2022-10-17 02:48 | disposition home or self-care (01) ==
LOC: EC 22:42
DX: O99.013 Anemia complicating pregnancy, third trimester (principal); D64.9 Anemia, unspecified; O99.343 Other mental disorders complicating pregnancy, third trimester; F41.9 Anxiety disorder, unspecified; Z87.891 Personal history of nicotine dependence; Z79.899 Other long term (current) drug therapy; Z88.8 Allergy status to other drugs, medicaments and biological substances; Z3A.32 32 weeks gestation of pregnancy
CPT/HCPCS: 36415; 71046; 80053; 81001; 84484; 85025; 85610; 93005; 96360; 99284

== ENCOUNTER 2022-12-02 23:26 | Outpatient (CLI) | payer OTHER ==
[2022-12-03 02:10] VITALS: BP 126/73; PULSE 95; RESP 16; TEMP 98.1
--- NOTE | 2022-12-05 08:16 | P.MSEPDOC ---
Presenting Problems - Arrival Data Date of Arrival on Unit: 12/02/22 Time of Arrival on Unit: 23:26 Mode of Transport: Ambulatory - Complaint OB-Reason for Admission/Chief Complaint: Possible Onset of Labor, Acute Nausea/Vomiting Comment: pt presents to tr with c/o since about 1930 after being on a walk. pt states. that once she got home, she laid down, and "it felt like my belly was stuck in a. contraction." pt states her biggest concern is the left sided pain that is radiating. down. pt is talking easily, no apparent distress noted, ambulated from the er Medical History - Information : 5 Para: 2 Term: 2 : 0 Abortions: Spontaneous or Elective: 2 Number of Living Children: 2 - Gestational Age Gestational Age by ABDON (wks/days): 38 Weeks and 3 Days - History Comment: Patient is high risk and is seen at [facility] for history of 32week, PTL, microcephaly, CP, Congenital CMV. 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 Review of Systems - Review of Systems Constitutional: No problems Breast: No problems ENT: No problems Cardiovascular: No problems Respiratory: No problems Gastrointestinal: No problems Genitourinary: No problems Musculoskeletal: No problems Neurological: No problems Skin: No problems Vital Signs - Temperature Temperature: 98.1 F Temperature Source: Temporal Artery Scan - Pulse Pulse Oximetery Pulse Rate: 95 Pulse Assessment Method: Pulse Oximetry - Respirations Respiratory Rate: 16 Oxygen Delivery Method: Room Air O2 Sat by Pulse Oximetry: 97 - Blood Pressure Right Arm Blood Pressure: 126/73 Blood Pressure Mean: 90 Blood Pressure Source: Automatic Cuff Medical Screen Scoring - Cervical Exam Dilation (cm): 3.5 Effacement (%): 60 Station: -2 Membranes: Intact - Uterine Contractions Frequency From (mins): 2 Frequency To (mins): 4 Duration From (seconds): 60 Duration To (seconds): 100 Intensity: Mild Resting: Soft to palpation - Assessment - Baby A Baseline FHR: 125 Heart Rate - NICHD Category: Category I (Normal) NST: Reactive Physician Notification - Physician Notified Physician Notified Date: 12/03/22 Physician Notified Time: 01:10 Physician: Casandra Barragan Order Received: Yes - Notification Comment Comment: Called and spoke with Dr. Barragan. Patient of Dr. Munoz, , ABDON 12/09/22, GA. 38.2. Reactive NST, negative amnisure, category 1 FHR, [place] every 3 minutes. Vitals good, pain 2/10 stated by patient. Orders to allow her to stay for another hour. and recheck her, if no change she can be discharged. She can also choose to go home at. this time and come back to triage if contractions become more intense. Maternal Triage Index - Maternal Triage Index Presenting for scheduled procedure w/no complaint: No - Stat/Priority 1 Stat Priority 1: No - Urgent/Priority 2 Urgent Priority 2: No - Prompt/Priority 3 Prompt Priority 3: Yes Criteria Met for Priority 3: >34 weeks with c/o contractions 3 minutes apart. Disposition - Disposition OB Disposition: Discharge to home Discharge Date: 12/03/22 Discharge Time: 01:57 I agree with the RN Medical Screening Exam: Yes Case reviewed; plan agreed upon as documented in EMR&OBIX.: Yes Diagnosis: NAUSEA WITH VOMITING, UNSPECIFIED
== END 2022-12-03 01:50 | disposition home or self-care (01) ==
LOC: FBPOP 23:26
PROVIDERS: ATTEND Obstetrics & Gynecology
DX: O21.8 Other vomiting complicating pregnancy (principal); Z3A.38 38 weeks gestation of pregnancy; F17.200 Nicotine dependence, unspecified, uncomplicated; Z88.8 Allergy status to other drugs, medicaments and biological substances
CPT/HCPCS: 59025; 84112; G0463; 99213

== ENCOUNTER 2022-12-03 13:08 | Outpatient (CLI) | payer OTHER ==
[2022-12-03 15:06] VITALS: BP 127/58; PULSE 90; RESP 17
--- NOTE | 2022-12-04 06:06 | P.MSEPDOC ---
Presenting Problems - Arrival Data Date of Arrival on Unit: 12/03/22 Time of Arrival on Unit: 13:08 Mode of Transport: Ambulatory - Complaint OB-Reason for Admission/Chief Complaint: Possible Onset of Labor Medical History - Information : 5 Para: 2 Term: 1 : 1 Abortions: Spontaneous or Elective: 2 Number of Living Children: 2 - Gestational Age Gestational Age by ABDON (wks/days): 38 Weeks and 3 Days Review of Systems - Review of Systems Constitutional: No problems Breast: No problems ENT: No problems Cardiovascular: No problems Respiratory: No problems Gastrointestinal: No problems Genitourinary: No problems Musculoskeletal: No problems Neurological: No problems Skin: No problems Vital Signs - Pulse Left Brachial Pulse Rate: 90 Pulse Assessment Method: Automatic Cuff - Respirations Respiratory Rate: 17 Oxygen Delivery Method: Room Air O2 Sat by Pulse Oximetry: 98 - Blood Pressure Left Arm Blood Pressure: 127/58 Blood Pressure Mean: 81 Blood Pressure Source: Automatic Cuff Medical Screen Scoring - Cervical Exam Dilation (cm): 4 Effacement (%): 60 Station: -3 Membranes: Intact - Uterine Contractions Frequency From (mins): 3 Frequency To (mins): 10 Duration From (seconds): 70 Duration To (seconds): 90 Intensity: Moderate Resting: Soft to palpation - Assessment - Baby A Baseline FHR: 130 Heart Rate - NICHD Category: Category I (Normal) NST: Reactive Physician Notification - Physician Notified Physician Notified Date: 12/03/22 Physician Notified Time: 13:38 Physician: Steven Moser New Order Received: Yes - Notification Comment Comment: Dr. Moser given report on pt. aware of pt hx. VS readback. Cat 1 FHTs. Contractions q9 minutes. Vag exam of 4/60/-3. Orders recieved to recheck pt in 1 hr. if. no change RN to discharge pt to home with normal labor instructions. Maternal Triage Index - Urgent/Priority 2 Urgent Priority 2: Yes Provider Notified: Steven Moser Provider Notified Time: 13:38 Criteria Met for Priority 2: Pt c/o of contractions. Pt reports contractions started lastnight. Pt was seen in triage and was dilated to 3.5/60 and made no change after 3 hrs. Pt reports contractions were every 3 minutes this morning but have spaced out. Pt rates pain 4 out of 10. Disposition - Disposition OB Disposition: Discharge to home Discharge Date: 12/03/22 Discharge Time: 14:39 I agree with the RN Medical Screening Exam: Yes Case reviewed; plan agreed upon as documented in EMR&OBIX.: Yes Diagnosis: FALSE LABOR AT OR AFTER 37 COMPLETED WEEKS OF GESTATION
== END 2022-12-03 14:39 | disposition home or self-care (01) ==
LOC: FBPOP 13:08
PROVIDERS: ATTEND Obstetrics & Gynecology
DX: O47.1 False labor at or after 37 completed weeks of gestation (principal); O99.333 Smoking (tobacco) complicating pregnancy, third trimester; F17.200 Nicotine dependence, unspecified, uncomplicated; Z3A.38 38 weeks gestation of pregnancy; Z88.8 Allergy status to other drugs, medicaments and biological substances
CPT/HCPCS: 59025; G0463; 99213

== ENCOUNTER 2022-12-05 17:05 | Inpatient (IN) | payer OTHER ==
[2022-12-05] MEDS ORDERED: miSOPROStoL 200 MCG TAB PO PRN (18:59)
[2022-12-05] MEDS ORDERED: CITRIC ACID-SODIUM CITRATE 15 ML CUP PO ONE (18:59)
[2022-12-05] MEDS ORDERED: LACTATED RINGERS 1,000 ML IV ONE (18:59)
[2022-12-05] MEDS ORDERED: TRANEXAMIC 1,000 MG/100ML-NACL 1,000 MG in EMPTY BAG 1 BAG IV PRN (18:59)
[2022-12-05] MEDS ORDERED: CARBOPROST TROMETHAMINE 250 MCG/ML 1 ML AMP IM PRN (18:59)
[2022-12-05] MEDS ORDERED: METHYLERGONOVINE 0.2 MG/ML 1 ML AMP IM PRN (18:59)
[2022-12-05] MEDS ORDERED: OXYTOCIN 10 UNIT/ML 1 ML VIAL IM PRN (18:59)
[2022-12-05] MEDS ORDERED: OXYTOCIN 30 UNITS/500 ML NS 30 UNIT in SALINE 1 500ML.BAG IV SCH ×2 (19:00→20:30)
[2022-12-05 19:28] LABS: Anisocytosis Moderate; Basophils % (A) 0 %; Eosinophils # (A) 0.1 k/uL (0-0.7); Eosinophils % (A) 1 %; HCT 36.6 % (34.0-46.0); Lymphocytes # (A) 1.3 k/uL (1.0-4.8); Lymphocytes % (A) 20 %; MCH 24.4 pg (25.0-35.0); MCHC 32.2 g/dL (31.0-37.0); Mean Platelet Volume 10.3; Microcytosis Moderate; Monocytes # (A) 0.5 k/uL (0-1.0); Monocytes % (A) 8 %; Neutrophils # (A) 4.5 k/uL (1.3-7.7); Neutrophils % (A) 69 %; Platelet Count 232 k/uL (150-450); RBC 4.84 m/uL (3.80-5.40); RDW 20.9 % (11.5-15.5); WBC 6.5 k/uL (3.8-10.6)
--- NOTE | 2022-12-05 19:32 | P.HPOB ---
History of Present Illness H&P Date: 12/05/22 Chief Complaint: Contractions, macrosomia This patient is a pleasant 27-year-old 5 para 2 female estimated date of confinement 12/14/2022 estimated gestational age 38-5/7 weeks who presents to labor and delivery with complaints of contractions. 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 Patient's been followed by maternal medicine and most recent ultrasound done at 37 weeks showed the baby's estimated weight to be approximately 9 pounds which is greater than the 97th percentile. I did discuss options with the patient including a right for macrosomia versus trial of labor. Patient did understand the risks and benefits of both options. She initially wanted to try vaginal delivery however has been in labor and delivery approximately 3 times this week with contractions with no descent of the head is now requesting section. is also complicated by chronic anemia is getting iron infusions per Dr. Manrique. She states her most recent hemoglobin was 10.2. is otherwise been uncomplicated. She's had normal testing. Patient does have a history of a previous baby that was affected by intrauterine CMV and has quadriplegia. Review of Systems Genitourinary: Reports Menstruation: Reports amenorrhea Past Medical History Additional Past Medical History / Comment(s): Chronic anemia History of Any Multi-Drug Resistant Organisms: MRSA Date of last positivie culture/infection: 2007 knee and axilla MDRO Source:: knee and axilla Past Surgical History: Adenoidectomy, Tonsillectomy Additional Past Surgical History / Comment(s): colonoscopy Past Anesthesia/Blood Transfusion Reactions: No Reported Reaction Past Psychological History: No Psychological Hx Reported Smoking Status: Never smoker Past Alcohol Use History: None Reported Past Drug Use History: None Reported - Past Family History Mother Family Medical History: No Reported History Additional Family Medical History / Comment(s): on mom's side, gradmother has heart disease Medications and Allergies Home Medications Medication Instructions Recorded Confirmed Type Ferrous Sulfate [Iron] 325 mg PO HS 08/11/20 12/05/22 History Vit No.180/Iron/Folic 1 each PO DAILY 10/22/22 12/05/22 History [ Plus Tablet] lamoTRIgine [LaMICtal] 200 mg PO BID 12/02/22 12/05/22 History Allergies Allergy/AdvReac Type Severity Reaction Status Date / Time nifedipine [From Procardia] Allergy Swelling Verified 12/05/22 17:36 Exam Vital Signs Temp Pulse Resp BP Pulse Ox 12/05/22 19:02 98.1 F 91 16 123/73 99 Intake and Output 12/05/22 12/05/22 12/05/22 06:59 14:59 22:59 Other: Weight 64.864 kg - OBG Physical Exam Abdomen: bowel sounds normal, no diffuse tenderness, no bruit present, no guarding noted, no hepatomegaly, no splenomegaly, no mass Vulva: both: normal Vagina: normal moisture, no discharge Cervix: no lesion (Cervix is 4-5 cm dilated and has been for the last 7 days), no discharge Uterus: enlarged Results Ultrasound as above. 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 labs show she is a positive, rubella immune, RPR is nonreactive, hepatitis B and C negative, HIV is nonreactive, CMV IgG was positive with a negative IgM consistent with her past infection. Glucola was normal, group B strep was negative, Assessment and Plan Assessment: This is a pleasant 27-year-old 5 para 2 female 38-5/7 weeks gestation admitted to labor and delivery with persistent contractions and no cervical dilation beyond 4-5 cm dilated without descent the head. Patient has known macrosomia as requested section at this time. Fetus also has a known right pelvic kidney. Plan is primary low transverse section. I did discuss the surgery and risks and risks of infection, bleeding, possible injury to bowel, bladder, vessels, and/or other organs. All the patient's questions are answered and a written consent is obtained. (1) 38 to 41 weeks gestation of Current Visit: Yes Status: Acute Code(s): MPS1405 - SNOMED Code(s): 244401151 (2) macrosomia Current Visit: Yes Status: Acute Code(s): LMO5927 - SNOMED Code(s): 24326302 (3) Chronic anemia Current Visit: Yes Status: Acute Code(s): D64.9 - ANEMIA, UNSPECIFIED SNOMED Code(s): 720367719
[2022-12-05 19:38] LABS: HGB 11.8 gm/dL (11.4-16.0); MCV 75.7 fL (80.0-100.0)
[2022-12-05] MEDS ORDERED: fentaNYL (PF) 50 MCG/ML 2 ML AMP ONE (19:39)
[2022-12-05] MEDS ORDERED: DEXAMETHASONE SOD PHOSPHATE 4 MG/ML 1 ML VIAL ONE (19:39)
[2022-12-05] MEDS ORDERED: KETOROLAC 15 MG/ML 1 ML VIAL ONE (19:39)
[2022-12-05] MEDS ORDERED: MORPHINE SULFATE (PF) 0.3 MG/0.3 ML SYR ONE (19:39)
[2022-12-05] MEDS ORDERED: OXYTOCIN 30 UNITS/500 ML NS BAG IV ONE (19:39)
[2022-12-05] MEDS ORDERED: ONDANSETRON 4 MG/2 ML VIAL ONE (19:39)
[2022-12-05] MEDS ORDERED: diphenhydrAMINE 50 MG/ML 1 ML VIAL IVP PRN (20:26)
[2022-12-05] MEDS ORDERED: LANOLIN CREAM 5 GM TUBE TOPICAL PRN (20:26)
[2022-12-05] MEDS ORDERED: NALOXONE 0.4 MG/ML 1 ML VIAL IV PRN (20:26)
[2022-12-05] MEDS ORDERED: ONDANSETRON 4 MG/2 ML VIAL IVP PRN (20:26)
[2022-12-05] MEDS ORDERED: ZOLPIDEM 5 MG TAB PO PRN (20:26)
[2022-12-05] MEDS ORDERED: METOCLOPRAMIDE 5 MG/ML 2 ML VIAL IVP PRN (20:26)
[2022-12-05] MEDS ORDERED: diphenhydrAMINE 25 MG CAP PO PRN (20:26)
--- NOTE | 2022-12-05 20:37 | P.OP ---
Date of Procedure: 12/05/22 Preoperative Diagnosis: #1: 38-5/7 week intrauterine . #2: Prodromal labor #3: macrosomia #4: Known pelvic kidney #5: Patient requesting section for delivery #6: Chronic anemia Postoperative Diagnosis: Same Procedure(s) Performed: Primary low transverse section Anesthesia: spinal Surgeon: Steven Moser Planning Rn #1: Merlin Sorenson Estimated Blood Loss (ml): 600 Pathology: other (Placenta) Condition: stable Disposition: floor Indications for Procedure: Please see dictated H&P for intimate details of this patient's admission. Brief summary is a pleasant 27-year-old 5 para 2 female 38-5/7 weeks gestation admitted to labor and delivery with complaints of regular contractions. This is patient's third visit to labor and delivery in the last 5 days with complaints of contractions that she's not progress beyond 4-5 cm dilated and head is remained high. Patient is known macrosomia as diagnosed per maternal- medicine. I previously did discuss possible section due to macrosomia and the patient is requesting this at this time. Patient understands this surgery and risks and risks of infection, bleeding, possible injury bowel, bladder, vessels, and/or other organs. All the patient's questions are answered and a written consent is obtained. Operative Findings: This is a vigorous viable male infant Apgars 9 and 9 delivery time is 1957 hrs. 's weight was 4040 gm Description of Procedure: This patient has a Mcdonough catheter placed to straight drain. She is subsequently taken to the operating room where she sat up and spinal anesthetic is administered without incident. With an adequate level of anesthesia she has abdominal prep and drape. After the appropriate timeout, scalpels and taken Pfannenstiel skin incision is made. A second scalpel is taken down to the fascia the fascia scored with a knife. Fascial incision extended bilaterally using the Suarez scissors. Fascia is then dissected off the rectus muscles sharply. Rectus muscles are and the peritoneum was identified and entered sharply. Peritoneal incision extended superior and inferior without difficulty. Bladder blade is then placed. Bladder peritoneum was taken sharply off the lower uterine segment. Scalpels then taken low transverse uterine incision is then made. Using a hemostat I enter the uterine cavity bluntly and there is loss of a large amount of clear fluid. Uterine incision extended bluntly. Infant's head is not engaged then easily delivered through the incision with fundal pressure. Mouth and nares are bulb suctioned. There is no evidence of a nuchal cord. With fundal pressure we then have deliver the anterior and posterior shoulder and rest infant's body. This is a vigorous viable male infant Apgars are 9 and 9 delivery time is 1957 hrs. After delivery of the the umbilical cord is doubly clamped and cut appears to be trivascular. The infant is handed off to the nurses in attendance. The placenta is then manually extracted intact. Uterus is externalized uterine incision demarcated with Hdz clamps. Uterine incision is then closed in 0 Vicryl running locked fashion 2 layers. Excellent hemostasis is noted. The bladder peritoneum was then reapproximated using a 3-0 Vicryl. Excess fluid is removed from the abdomen and pelvis. The uterus, tubes, ovaries appear normal for term gestation. The parietal peritoneum was then identified and closed using 0 Vicryl running fashion. The rectus muscles are then reapproximated using 0 Vicryl interrupted fashion. The fascia was then identified and closed using 0 PDS. Fascial incision is intact and hemostatic. Skin is and closed using luis. All counts are correct 3. There are no complications. Infant and mother are stable in the delivery room.
[2022-12-05] MEDS: LACTATED RINGERS 1,000 ML IV SCH (21:04)
[2022-12-05] MEDS: ACETAMINOPHEN TAB 500 MG TAB PO SCH (23:54)
[2022-12-06] MEDS: KETOROLAC 15 MG/ML 1 ML VIAL IVP SCH ×2 (02:21→13:30)
[2022-12-06] MEDS: LACTATED RINGERS 1,000 ML IV SCH ×2 (02:25→14:40)
[2022-12-06] MEDS: IBUPROFEN 600 MG TAB PO SCH ×4 (03:21→21:03)
[2022-12-06] MEDS: ACETAMINOPHEN TAB 500 MG TAB PO SCH ×3 (05:19→17:58)
--- NOTE | 2022-12-06 06:42 | P.PNOBGPC ---
Subjective - Subjective Patient reports: Reports appetite normal, Reports voiding normally, Reports pain well controlled, Reports ambulating normally : doing well Objective - Vital Signs Latest vital signs: Vital Signs Temp Pulse Resp BP Pulse Ox 12/06/22 04:00 98.7 F 66 16 104/61 12/06/22 00:00 98.2 F 67 16 130/71 12/05/22 22:22 98.1 F 63 16 137/75 98 12/05/22 21:52 68 16 127/61 98 12/05/22 21:22 54 L 16 112/70 96 12/05/22 21:07 66 16 119/72 97 12/05/22 20:52 73 16 117/65 97 12/05/22 20:37 88 16 124/60 98 12/05/22 20:26 98 12/05/22 20:22 97.3 F L 90 16 125/60 97 12/05/22 19:02 98.1 F 91 16 123/73 99 Intake and Output 12/05/22 12/05/22 12/06/22 14:59 22:59 06:59 Output Total 2304 300 Balance -2304 -300 Output: Urine 1200 300 Output, Quantitative 1104 Blood Loss Other: Voiding Method Indwelling Catheter Weight 64.864 kg - Exam Lungs: bilateral: normal Chest: Normal S1, Normal S2 Extremities: Present: normal Abdomen: Present: normal appearance, soft. Absent: distention, tenderness Incision: Present: normal, dry, intact Uterus: Present: normal, firm - Labs Labs: Abnormal Lab Results - Last 24 Hours (Table) 12/05/22 Range/Units 19:10 MCV 75.7 L D (80.0-100.0) fL MCH 24.4 L (25.0-35.0) pg RDW 20.9 H (11.5-15.5) % Assessment and Plan Assessment: Postoperative day #1. Patient is resting without new complaints. Vital signs are stable she's afebrile. Uterus is firm nontender she's having normal lochia. Her incision is intact and dry. CBC today is pending. Plan today is to discontinue her catheter, check a CBC, advance her diet, encourage ambulation. (1) 38 to 41 weeks gestation of Current Visit: Yes Status: Acute Code(s): [id number] - SNOMED Code(s): 909426960 (2) macrosomia Current Visit: Yes Status: Acute Code(s): GLC3672 - SNOMED Code(s): 99236552 (3) Chronic anemia Current Visit: Yes Status: Acute Code(s): D64.9 - ANEMIA, UNSPECIFIED SNOMED Code(s): 264815050
--- NOTE | 2022-12-06 06:45 | P.MSEPDOC ---
Presenting Problems - Arrival Data Date of Arrival on Unit: 12/05/22 Time of Arrival on Unit: 17:05 Mode of Transport: Ambulatory - Complaint OB-Reason for Admission/Chief Complaint: Possible Onset of Labor Medical History - Information : 5 Para: 2 Term: 2 : 0 Abortions: Spontaneous or Elective: 2 Number of Living Children: 2 - Gestational Age Gestational Age by ABDON (wks/days): 38 Weeks and 5 Days - History Comment: LGA per u/s Review of Systems - Review of Systems Constitutional: No problems Breast: No problems ENT: No problems Cardiovascular: No problems Respiratory: No problems Gastrointestinal: No problems Genitourinary: No problems Musculoskeletal: No problems Neurological: No problems Skin: No problems Vital Signs - Temperature Temperature: 98.7 F Temperature Source: Oral - Pulse Right Sitting Pulse Rate: 66 Pulse Assessment Method: Automatic Cuff - Respirations Respiratory Rate: 16 Oxygen Delivery Method: Room Air - Blood Pressure Right Arm Blood Pressure: 104/61 Blood Pressure Mean: 75 Blood Pressure Source: Automatic Cuff Medical Screen Scoring - Cervical Exam Dilation (cm): 5 Effacement (%): 60 Station: -2 Membranes: Intact - Uterine Contractions Frequency From (mins): 2 Frequency To (mins): 8 Duration From (seconds): 60 Duration To (seconds): 80 Resting: Soft to palpation - Assessment - Baby A Baseline FHR: 135 Heart Rate - NICHD Category: Category I (Normal) NST: Reactive Physician Notification - Physician Notified Physician Notified Date: 12/05/22 Physician Notified Time: 18:54 Physician: Steven Moser New Order Received: Yes (admit pt for primary section) Maternal Triage Index - Non-Urgent/Priority 4 Non-Urgent Priority 4: Yes Criteria Met for Priority 4: reactive nst, contractions every 2-8 minutes, vag exam 4.5cm with change to 5cm after 1 hour Disposition - Disposition OB Disposition: Admit, LDRP Suite I agree with the RN Medical Screening Exam: Yes Case reviewed; plan agreed upon as documented in EMR&OBIX.: Yes Diagnosis: RELATED CONDITIONS, UNSPECIFIED, THIRD TRIMESTER
[2022-12-06 07:18] LABS: Anisocytosis Moderate; Basophils % (A) 0 %; Eosinophils # (A) 0.1 k/uL (0-0.7); Eosinophils % (A) 0 %; HCT 35.2 % (34.0-46.0); HGB 11.3 gm/dL (11.4-16.0); Lymphocytes # (A) 1.4 k/uL (1.0-4.8); Lymphocytes % (A) 11 %; MCH 24.9 pg (25.0-35.0); MCHC 32.2 g/dL (31.0-37.0); MCV 77.5 fL (80.0-100.0); Mean Platelet Volume 9.8; Microcytosis Moderate; Monocytes # (A) 0.9 k/uL (0-1.0); Monocytes % (A) 7 %; Neutrophils # (A) 10.1 k/uL (1.3-7.7); Neutrophils % (A) 80 %; Platelet Count 240 k/uL (150-450); RBC 4.54 m/uL (3.80-5.40); RDW 21.2 % (11.5-15.5); WBC 12.7 k/uL (3.8-10.6)
[2022-12-06] MEDS: SENNOSIDES-DOCUSATE SODIUM 1 EACH TAB PO SCH ×2 (08:08→21:02)
--- NOTE | 2022-12-06 11:11 | P.PN ---
Progress Note - Text 12/06/22 626am 27-year-old female status post with spinal Duramorph. Patient seen and evaluated for postop pain control, she has a VAS of 3 with no complaints of nausea vomiting, she has pruritus which is subsided soon.
[2022-12-06] MEDS: FERROUS SULFATE 325 MG TAB PO SCH (15:55)
[2022-12-06] MEDS: lamoTRIgine 100 MG TAB PO SCH (21:03)
[2022-12-07] MEDS: ACETAMINOPHEN TAB 500 MG TAB PO SCH ×4 (01:25→20:52)
[2022-12-07] MEDS: IBUPROFEN 600 MG TAB PO SCH ×4 (03:13→23:25)
--- NOTE | 2022-12-07 06:28 | P.PNOBGPC ---
Subjective - Subjective Patient reports: Reports appetite normal, Reports voiding normally, Reports pain well controlled, Reports ambulating normally : doing well Objective - Vital Signs Latest vital signs: Vital Signs Temp Pulse Resp BP Pulse Ox 12/07/22 00:00 97.7 F 73 18 114/71 12/06/22 20:00 97.8 F 65 18 124/71 12/06/22 16:00 97.8 F 72 16 111/73 98 12/06/22 11:29 97.6 F 62 16 112/72 98 12/06/22 08:00 97.3 F L 70 18 114/76 98 12/06/22 06:45 98.7 F 66 16 104/61 Intake and Output 12/06/22 12/06/22 12/07/22 14:59 22:59 06:59 Intake Total 500 Output Total 1700 300 Balance -1700 200 Intake: Intake, IV Titration 500 Amount Oxytocin 30 Units/500 ml 500 Ns 30 unit In Saline 1 500ml.bag @ Per Protocol IV .Q0M [facility] Rx#:[id number] Output: Urine 1700 300 Uretheral (Mcdonough) 200 Other: # Voids 1 1 # Bowel Movements 1 - Exam Lungs: bilateral: normal Chest: Normal S1, Normal S2 Extremities: Present: normal Abdomen: Present: normal appearance, soft. Absent: distention, tenderness Incision: Present: normal, dry, intact Uterus: Present: normal, firm - Labs Labs: Abnormal Lab Results - Last 24 Hours (Table) 12/06/22 Range/Units 07:01 WBC 12.7 H (3.8-10.6) k/uL Hgb 11.3 L (11.4-16.0) gm/dL MCV 77.5 L (80.0-100.0) fL MCH 24.9 L (25.0-35.0) pg RDW 21.2 H (11.5-15.5) % Neutrophils # 10.1 H (1.3-7.7) k/uL Assessment and Plan Assessment: Postoperative day #2. Patient is resting without complaints. Vital signs are stable she is afebrile. Uterus is firm nontender and her incision is intact and dry. CBC was normal. Patient's ambulating, urinating without difficulty. Plan today is to continue routine care and we'll discharge home tomorrow. (1) 38 to 41 weeks gestation of Current Visit: Yes Status: Acute Code(s): [id number] - SNOMED Code(s): 193960706 (2) macrosomia Current Visit: Yes Status: Acute Code(s): BYF5186 - SNOMED Code(s): 73955819 (3) Chronic anemia Current Visit: Yes Status: Acute Code(s): D64.9 - ANEMIA, UNSPECIFIED SNOMED Code(s): 319840798
[2022-12-07] MEDS: SENNOSIDES-DOCUSATE SODIUM 1 EACH TAB PO SCH ×2 (08:16→20:10)
[2022-12-07] MEDS: lamoTRIgine 100 MG TAB PO SCH ×2 (08:17→20:51)
[2022-12-07] MEDS: SIMETHICONE 80 MG CHEWABLE PO PRN ×3 (12:40→20:51)
[2022-12-07] MEDS: FERROUS SULFATE 325 MG TAB PO SCH (12:41)
[2022-12-08] MEDS: ACETAMINOPHEN TAB 500 MG TAB PO SCH ×2 (02:42→09:54)
[2022-12-08] MEDS: IBUPROFEN 600 MG TAB PO SCH ×2 (05:48→11:25)
--- NOTE | 2022-12-08 08:16 | P.DS ---
Providers Date of admission: 12/05/22 19:03 Expected date of discharge: 12/08/22 Attending physician: Steven Moser Primary care physician: Stated None Hospital Course: This is a 27-year-old female 5 para 2 at 38-5/7 weeks who presented in active labor with no head descent and macrosomia. She underwent a primary low transverse section and delivered a viable male with scores of 9 at 1 minute and 9 at 5 minutes and infant weight of 8 lbs. 15 oz. Her postoperative course was uncomplicated. Her lochia is decreasing. Her pain is fairly well controlled with ibuprofen and Tylenol and occasional oxycodone. She is breast-feeding. Vital signs are stable. Abdomen is soft with positive bowel sounds 4. Incision is clean dry and intact with luis in place. Extremities show negative Homans. Impression is status post primary low transverse section postoperative day #3. Plan is to discharge home today. Routine postoperative and instructions are given. She will be given a prescription for ibuprofen and a few oxycodone. She has been counseled regarding opioid use and has signed a consent form. She will follow up with Dr. Moser in 1 week for a postoperative check and in 6 weeks for check. She is advised to call the office if she has any further questions or concerns prior to her appointment times. Procedures: Primary low transverse section with delivery of a viable male infant on 12/05/2022 Patient Condition at Discharge: Stable Plan - Discharge Summary New Discharge Prescriptions: New Ibuprofen [Motrin] 600 mg PO Q6H #30 tab oxyCODONE HCL [OxyIR] 5 mg PO Q4HR PRN #18 tab PRN Reason: Pain Scale 4 - 6 No Action Ferrous Sulfate [Iron] 325 mg PO HS Vit No.180/Iron/Folic [ Plus Tablet] 1 each PO DAILY lamoTRIgine [LaMICtal] 200 mg PO BID Discharge Medication List Ferrous Sulfate [Iron] 325 mg PO HS 08/11/20 [History] Vit No.180/Iron/Folic [ Plus Tablet] 1 each PO DAILY 10/22/22 [History] lamoTRIgine [LaMICtal] 200 mg PO BID 12/02/22 [History] Ibuprofen [Motrin] 600 mg PO Q6H #30 tab 12/07/22 [Rx] oxyCODONE HCL [OxyIR] 5 mg PO Q4HR PRN #18 tab 12/07/22 [Rx] Follow up Appointment(s)/Referral(s): Steven Moser MD [STAFF PHYSICIAN] - 01/17/23 10:30 am (Post-Op appointment December 19 @ 1:30PM) Patient Instructions/Handouts: (DC) Activity/Diet/Wound Care/Special Instructions: No strenuous activities or heavy lifting for 6 weeks. No intercourse or anything per vagina for 6 weeks. Please call if any fever, chills, excessive vaginal bleeding, and/or pain Discharge Disposition: HOME SELF-CARE
[2022-12-08] MEDS: SENNOSIDES-DOCUSATE SODIUM 1 EACH TAB PO SCH (08:37)
[2022-12-08] MEDS: SIMETHICONE 80 MG CHEWABLE PO PRN (08:40)
[2022-12-08] MEDS: lamoTRIgine 100 MG TAB PO SCH (08:40)
[2022-12-08 09:53] VITALS: BP 126/73; PULSE 88; RESP 18; TEMP 97.8
== END 2022-12-08 10:45 | disposition home or self-care (01) | DRG 540 ==
LOC: FBPOP 17:05 → 4FBP 19:03
PROVIDERS: ADMIT Obstetrics & Gynecology; ATTEND Obstetrics & Gynecology
PROC: 10D00Z1 Extraction of Products of Conception, Low, Open Approach (ICD-10-PCS; principal; 2022-12-05 19:42)
DX: O36.63X0 Maternal care for excessive fetal growth, third trimester, not applicable or unspecified (principal); O99.02 Anemia complicating childbirth; Z37.0 Single live birth; Z3A.38 38 weeks gestation of pregnancy; Z79.899 Other long term (current) drug therapy; Z28.311 Partially vaccinated for COVID-19; O64.8XX0 Obstructed labor due to other malposition and malpresentation, not applicable or unspecified; Z86.14 Personal history of Methicillin resistant Staphylococcus aureus infection
CPT/HCPCS: 59025; 85025; 86850; 86900; 86901; 99213

== ENCOUNTER 2024-06-29 09:49 | Day surgery (SDC) | payer BC ==
[2024-06-29] MEDS: IV FLUID CONTINUATION 1,000 ML IV ONE (10:25)
[2024-06-29] MEDS: ONDANSETRON 4 MG/2 ML VIAL IVP STA (10:30)
[2024-06-29 10:34] VITALS: TEMP 98.9
[2024-06-29] MEDS ORDERED: PROPOFOL 10 MG/ML 20 ML VIAL IV ONE (10:34)
[2024-06-29] MEDS: LACTATED RINGERS 1,000 ML IV ONE (10:35)
[2024-06-29 11:06] VITALS: PULSE 96; RESP 16
[2024-06-29 11:17] VITALS: BP 90/54
--- NOTE | 2024-06-29 12:51 | P.OP ---
Date of Procedure: 06/29/24 Preoperative Diagnosis: Iron Deficiency Anemia Postoperative Diagnosis: Iron Deficiency Anemia Procedure(s) Performed: 1. EGD with Biopsy 2. Colonoscopy Anesthesia: MAC Surgeon: Jensen Maldonado Pathology: other (Antral Biopsies) Condition: stable Disposition: PACU Description of Procedure: Informed consent was obtained. The procedure, its risks, benefits, and alternatives were discussed. The patient was placed in the left lateral decubitus position. The patient was sedated. The endoscope was inserted into the oropharynx and guided under direct vision into the esophagus, stomach, and duodenum. The duodenal bulb and second portion were unremarkable. The scope was withdrawn to the stomach and retroflexed. There was no increased fluid, food or secretions in the upper gastrointestinal tract. There was very minimal, nonspecific, patchy antral erythema. Biopsies were obtained for Helicobacter pylori. No erosions or ulcers. There was no gastritis and no hiatal hernia noted. There was a gastric polyp which was biopsied. Digital rectal exam was performed revealing normal sphincter tone and there were no external hemorrhoids. The colonoscope was inserted into rectum and advanced under direct visualization, without difficulty, to the cecum, where the cecal strap, appendiceal orifice, and the ileocecal valve were identified. The quality of the preparation was good. The colonoscope was then withdrawn while carefully examining the mucosa. The colonic mucosa appeared normal with normal vascularity and haustral markings. No masses, polyps, AVM/s or diverticula were seen. The endoscope was removed and the procedure terminated. The patient tolerated the procedure well without complications.
== END 2024-06-29 12:01 | disposition home or self-care (01) ==
LOC: ORWHC2ENDO 09:49
PROVIDERS: ATTEND Surgery
DX: K29.50 Unspecified chronic gastritis without bleeding (principal); K31.7 Polyp of stomach and duodenum; K21.9 Gastro-esophageal reflux disease without esophagitis; D50.9 Iron deficiency anemia, unspecified; F12.90 Cannabis use, unspecified, uncomplicated; F31.9 Bipolar disorder, unspecified; Z88.8 Allergy status to other drugs, medicaments and biological substances; Z79.899 Other long term (current) drug therapy
CPT/HCPCS: 81025; 88305; 88342; 45378; 43239; J2405; J2704